=== PATIENT | male | born 1955 | race Caucasian/White ===

== ENCOUNTER 2024-07-21 14:27 | Outpatient (AMB) | payer OTHER, SELFPAY ==
--- NOTE | 2024-07-21 14:31 | A.OFFVIS_ITS ---
Vital Signs 07/21/24 14:33 Height 5 ft 9.49 in Weight 213 lb 10.047 oz BMI 31.1 BP 116/66 Blood Pressure Location Lt brachial Position Sitting Pulse 69 Pulse Source Pulse Oximeter Intake Visit Reasons: arthralgia Intake Note: Patient presents today as a new patient externally referred by PCP for arthralgia. Security And Compliance Project Manager Required: No Accompanied by: Spouse Allergies ENVIROMENTAL Allergy (Intermediate, Uncoded 07/21/24 14:34) HAYFEVER Medication List - Last Reconciled 07/21/24 by Asia Almaguer MD albuterol sulfate 90 mcg/actuation 2 puffs inhalation Q6H PRN amlodipine 10 mg PO DAILY azelastine 1 spray intranasal BID fluticasone propionate 110 mcg/actuation 1 puff inhalation BID hydrochlorothiazide 12.5 mg PO DAILY HPI Comments Details: Patient is a 69-year-old male with hypertension and asthma who presents for evaluation of right wrist pain and swelling. Patient is with his today. They state that in April 2024 they were on holiday in [place] and he had sudden onset of right wrist pain and swelling. This is associated with inability to move the wrist. This got progressively worse over a couple days and so he went to an urgent care. They did a duplex which was negative for DVT and they also checked him for Lyme disease which his antibodies were negative at that time. There was concern for cellulitis and so he was placed on antibiotics and told to follow up with his primary. He says he is slightly improved on antibiotics but he still continued to have pain. He followed with his primary about 4 weeks later and he was given a Medrol Dosepak which completely resolved the pain and swelling. Of note he also reports that he has anosmia and he noted complete resolution of his anosmia with the course of steroids. This happened once prior about a year ago. Again to the same right wrist. However it was not as intense as it was in April. He denies any history of 1st MTP pain and swelling or bilateral knee pain and swelling. He denies any family history of any autoimmune disease. Denies any personal history of psoriasis 07/06/24: normal ESR/CRP. 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 Denies rashes, photosensitivity, alopecia, oral/nasal ulcers, sicca symptoms, lymphadenopathy, chest pain/shortness of breath, foamy urine, lower extremity edema, muscle weakness, Raynaud's Also denies history of seizure, CVA, psychosis, history of kidney problems, history of cytopenias, history of VTE Denies dry eyes and dry mouth Does not smoke Does drink alcohol every day 4 glasses of rum and Coke. 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 Allergic rhinitis Surgical History Hx of wisdom tooth extraction History of surgery Family History Mother Dementia Progressive supranuclear palsy Father High blood pressure High cholesterol Aneurysm Social History Alcohol intake: current Alcohol intake frequency: 3 or more drinks per day Patient Tobacco Use Status: Former Tobacco user Review of Systems Const Details: Review of Systems Constitutional: Denies fever, chills, weight loss ENT: Denies vision changes, eye pain or eye redness, dental caries, dry mouth GI: Denies nausea, vomiting, diarrhea, abdominal pain, change in BM Pulm: Denies SOB, LOPEZ, hemoptysis, wheezing Cards: Denies chest pain, palpitations Skin: Denies Raynaud's, rash, nail changes, photosensitivity, HOSPITALITY COORDINATOR: Denies headaches, weakness, paresthesias, recurrent falls MSK: as per HPI All other systems reviewed and are unremarkable except noted above Physical Exam Vital Signs: BMI result Body Mass Index 31.1 Physical Examination Patient well appearing and in no apparent painful distress Able to rise from chair without support. ?Gait normal. Constitutional Mucous membranes pink and moist patient alert and cooperative HEENT Conjunctiva and sclera clear. ?Pupils equal round and reactive to light. ?No lymphadenopathy. ?Normal dentition. Salivary pool adequate Respiratory System Normal respiratory effort and able to speak in complete sentences. ?Clear to auscultation bilaterally. ?No crackles, rales, rhonchi, wheezes heard. Cardiac System Regular rate and rhythm. ?S1 and S2 heard no murmurs. ?Radial pulses intact bilaterally MSK Hands:.??He notably has large fingers. Unsure if this is swelling because the size was equal bilaterally. There was no tenderness to palpation of the MCPs, PIPs or DIPs. DIPs had scattered Heberden nodes. Able to make a fist Wrists: Right wrist with some fullness which may indicate some synovial thickening when compared to the left wrist however there was full range of motion and no tenderness to palpation. Elbows: Full range of motion without pain. No tenderness, weakness, swelling, increased warmth or erythema. Shoulders: Full range of motion without pain. No tenderness, weakness, swelling, increased warmth or erythema. Knees:.???Normal pain-free range of motion without tenderness, swelling, increased warmth or erythema.? Bilateral knee crepitations Ankles:.??Normal pain-free range of motion without tenderness, swelling, increased warmth or erythema. Feet:.??Normal pain-free range of motion without tenderness, swelling, increased warmth or erythema. Results Reviewed Results Reviewed: brought in results from outside hospital. X-ray report reviewed which showed normal hand and wrist: normal ESR/CRP. UA 3.7, RF <10, Lyme negative Has an appt for EMG to r/o carpal tunnel 05/2024:elevated ESR/CRP, UA normal, RF negative, MAURY positive 1:160 speckled Assessment & Plan Assessment & Plan (1) Calcium pyrophosphate deposition disease (CPPD): Code(s): M11.20 - Other chondrocalcinosis, unspecified site Category: Medical Plan: #Non crystal proven CPPD Patient with a history of monoarticular arthritis involving the wrist that responded to prednisone. This is pretty typical of CPPD. Differentials include rheumatoid arthritis, spondyloarthritis, reactive arthritis, sarcoidosis I am pretty convinced that this was an episode of CPPD especially since he does recall something similar happening to him about a year ago and it completely resolving on its own. Crystal diseases are self-limited and they go through intercritical periods where they do not have any pain or swelling. While I am convinced I will still check blood work to rule out rheumatoid arthritis as this is a, mimicker of CPPD and vice versa He is going for a EMG study to rule out carpal tunnel syndrome. At this time I have low suspicion for carpal tunnel syndrome. I do believe that his median nerve might have been inflamed at the point where he had wrist pain and swelling but I did tell him to proceed with EMG studies. We will also get repeat x-rays of his bilateral hands and wrists looking for chondrocalcinosis. We will also get bilateral knee films. Discussed with patient and that CPPD is a disease of relapsing and remitting agents. Given that he has only had 1 episode within the past year there is no indication to put him on suppression medication. If however he has further attacks within this year he will be placed on colchicine daily. Information given about CPPD and colchicine. We will send rescue Medrol Dosepak to the pharmacy. (2) Positive MAURY (antinuclear antibody): Code(s): R76.8 - Other specified abnormal immunological findings in serum Category: Medical Plan: #Positive MAURY The presence of antinuclear antibodies (MAURY) is mainly associated with connective tissue diseases (CTD). ?However, their presence is found in healthy people especially in women and patients >65. ?In healthy individuals, the frequency of MAURY has been shown to be 31.7% of individuals at 1:40 serum dilution, 13.3% at 1:80, 5.0% at 1:160, and 3.3% at 1:320 (2). Some drugs and xenobiotics are also important for the development of MAURY (hydralazine, hydrochlorothiazide, minocycline, terbinafine, ciprofloxacin, furosemide, omeprazole). Moreover, the deficiency of vitamin D in the body of patients correlates with occurrence of these antibodies (1). At this time there is low suspicion for a connective tissue disease. While it is uncommon to have a positive MAURY in a male over the age of 65 he is on hydrochlorothiazide which has been known to induce MAURY development. He has no signs or symptoms concerning for connective tissue disease at this time ? 1. Sary?lizzette Rodrigues, Niyah Hi, Radha Perez. Antinuclear antibodies in healthy people and non-rheumatic diseases - diagnostic and clinical implications. Reumatologia. 2018;56(4):243-248. doi: 10.5114/reum.2018.52607. Epub 2017May 28. PMID: 45814964; PMCID: [id number]. 2. Muñiz EM, Pradeep TE, Katiuska JS, Daphnie B, Layton R, Shannan MJ, Robert T, Samy JA, Allyson JR, Misty RG, Wei RN, Sonido JS, Milton NF, Braden RJ, Kendall Y, Kehinde A, Harvinder MR, Raphael JA. Range of antinuclear antibodies in healthy individuals. Arthritis Rheum. 1996;40(9):1601-11. doi: 10.1002/art.2997032352. PMID: 4806427. Plan I spent 60 minutes reviewing outside records and labs brought by during the appointment, seeing the patient, discussing the treatment plan with patient and (all questions answered) and documenting in the medical record ? Orders: Orders Erythrocyte Sedimentation Rate Today - Other chondrocalcinosis, unspecified site C Reactive Protein Today - Other chondrocalcinosis, unspecified site MAURY Reflex Titer and Pattern Today - Other chondrocalcinosis, unspecified site Anti DNA DS Antibody Today - Other chondrocalcinosis, unspecified site Complement C3 Today - Other chondrocalcinosis, unspecified site Uric Acid Today - Other chondrocalcinosis, unspecified site UA w Microscopic Today - Other chondrocalcinosis, unspecified site XR hand wrist LT Today . - Other chondrocalcinosis, unspecified site XR knee LT 3V Today .20 - Other chondrocalcinosis, unspecified site XR knee RT 3V Today . - Other chondrocalcinosis, unspecified site Comprehensive Met. Panel Today - Other chondrocalcinosis, unspecified site Complete Blood Count Auto Diff Today - Other chondrocalcinosis, unspecified site Anti Extractable Nuclear Ag Today - Other chondrocalcinosis, unspecified site Complement C4 Today - Other chondrocalcinosis, unspecified site Protein Electrophoresis, Serum Today M11.20 - Other chondrocalcinosis, unspecified site Cyclic Citrullinated Peptide Today M11.20 - Other chondrocalcinosis, unspecified site Rheumatoid Factor Today M11.20 - Other chondrocalcinosis, unspecified site XR hand wrist RT Today M11.20 - Other chondrocalcinosis, unspecified site Coding Level of Care Code New Pt Level 5 (70343) Diagnoses Calcium pyrophosphate deposition disease (CPPD) M11.20 Positive MAURY (antinuclear antibody) R76.8
[2024-07-21 14:33] VITALS: BP 116/66; PULSE 69; BMI 31.1
== END 2024-07-21 15:32 | disposition home or self-care (01) ==
PROVIDERS: PCP Internal Medicine; Visit Provider Student in an Organized Health Care Education/Training Program
DX: M11.20 Other chondrocalcinosis, unspecified site (principal); R76.8 Other specified abnormal immunological findings in serum
CPT/HCPCS: 99205

== ENCOUNTER → 2024-07-21 14:27 | Outpatient (BNVA) | payer OTHER, SELFPAY | PROVIDERS: PCP Internal Medicine; Visit Provider Student in an Organized Health Care Education/Training Program ==

== ENCOUNTER 2024-08-03 15:35 | Outpatient (REF) | payer BC, SELFPAY ==
--- NOTE | ~2024-08-03 | XR_ITS ---
EXAMINATION: XR HAND/WRIST RIGHT CLINICAL INFORMATION: Other chondrocalcinosis, unspecified site M11.20. COMPARISON: None available TECHNIQUE: PA, lateral, navicular, and oblique views of the right hand and wrist. FINDINGS: The bones and soft tissues are normal. No fracture. Alignment is anatomic. Mild degenerative changes at the first MCP joint. No erosions or soft tissue calcifications. XR/XR hand wrist RT IMPRESSION: Mild degenerative changes at the first MCP joint. Electronically signed by: Kofi Nieto MD 09/08/2024 10:25 AM [facility]
--- NOTE | ~2024-08-03 | XR_ITS ---
EXAMINATION: XR KNEE LEFT CLINICAL INFORMATION: Other chondrocalcinosis, unspecified site M11.20. COMPARISON: None available TECHNIQUE: Three views of the left knee. FINDINGS: Moderate tricompartment degenerative changes. Chondrocalcinosis. Small joint effusion. XR/XR knee LT 3V IMPRESSION: 1. Moderate tricompartment degenerative changes and small joint effusion. 2. Chondrocalcinosis. Electronically signed by: Kofi Nieto MD 09/08/2024 10:26 AM [facility]ODS
--- NOTE | ~2024-08-03 | XR_ITS ---
EXAMINATION: XR HAND/WRIST LEFT CLINICAL INFORMATION: Other chondrocalcinosis, unspecified site M11.20. COMPARISON: None available TECHNIQUE: PA, lateral, navicular, and oblique views of the left hand and wrist. FINDINGS: The bones and soft tissues are normal. No fracture. Alignment is anatomic. Joint spaces are maintained. Punctate radiodensity adjacent to the radial styloid. XR/XR hand wrist LT IMPRESSION: Punctate radiodensity adjacent to the radial styloid. Electronically signed by: Kofi Nieto MD 09/08/2024 10:21 AM ANIBAL WOODS
[2024-08-03 16:05] LABS: MANUAL DIFF FLAG NO
[2024-08-03 16:43] LABS: Basophils Absolute Auto 0.1 X10*3/uL (0.0-0.2); Eosinophils Absolute Auto 0.4 X10*3/uL (0.0-0.4); Eosinophils Percent Auto 7.2 % (0-4); Hematocrit 43.2 % (42.0-52.0); Hemoglobin 14.5 g/dl (14.0-18.0); Imm Gran Abs Auto 0.01 X10*3/uL (0.00-0.03); Imm Gran Pct Auto 0.2 % (0.0-0.4); Lymphocytes Absolute Auto 1.3 X10*3/uL (1.2-4.9); Lymphocytes Percent Auto 24.1 % (20-40); Mean Corpuscular HGB Conc 33.6 g/dl (31.0-36.0); Mean Corpuscular Hemoglobin 27.1 pg (27.0-33.0); Mean Corpuscular Volume 80.6 fL (80.0-98.0); Mean Platelet Volume 8.6 fL (9.4-12.4); Monocytes Absolute Auto 0.6 X10*3/uL (0.1-1.2); Neutrophils Percent Auto 56.5 % (45-73); Platelet Count 297 X10*3/uL (160-400); Red Blood Count 5.36 X10*6/uL (4.60-5.80); Red Cell Distribution Width 13.6 % (11.0-16.0); White Blood Count 5.3 X10*3/uL (4.8-10.8)
[2024-08-03 16:54] LABS: Appearance Urine Clear; Color Urine Yellow; Glucose Urine UA Negative (Negative); Leukocyte Esterase Urine Negative (Negative); Nitrite Urine Negative (Negative); Urine Blood Negative (Negative); Urine Ketones Negative (Negative); Urine Protein Negative (Neg-Trace)
[2024-08-03 17:01] LABS: Bacteria Urine None Seen (None Seen); Hyaline Casts Urine 0-2 /LPF (0-2); RBC Urine 0-2 /HPF (0-2); Squamous Epithelial Cell Urine 0-2 /HPF (0-2); WBC Urine 0-5 /HPF (0-5)
[2024-08-03 17:11] LABS: Rheumatoid Factor < 13.0 IU/mL (<15.0)
[2024-08-03 17:18] LABS: Alanine Aminotransferase 22 U/L (0-40); Albumin Level 4.3 g/dL (3.5-5.0); Alkaline Phosphatase 61 U/L (39-117); Anion Gap 14 (12-20); Aspartate Amino Transferase 23 U/L (5-37); Bilirubin Total 0.7 mg/dL (0.0-1.0); Blood Urea Nitrogen 9 mg/dL (9-16); C Reactive Protein 0.49 mg/dL (< or = 0.50); Calcium 9.9 mg/dL (8.4-10.2); Carbon Dioxide 28 mmol/L (22-29); Chloride 97 mmol/L (96-108); Estimated Glomerular Filt Rate > 60; Glucose Random 93 mg/dL (60-115); Potassium 4.4 mmol/L (3.3-5.1); Sodium 135 mmol/L (135-145); Total Protein 7.3 g/dL (6.5-8.0); Uric Acid 3.8 mg/dL (3.4-7.0)
[2024-08-03 19:19] LABS: Erythrocyte Sedimentation Rate 8 MM/HR (0-15)
[2024-08-04 10:48] LABS: Complement C3 132 mg/dL (82-185)
[2024-08-04 14:33] LABS: Anti DNA DS Antibody 1 IU/mL; SM/Ribonucleoprotein Ab <1.0 NEG AI (<1.0 NEG); Smith Protein <1.0 NEG AI (<1.0 NEG)
[2024-08-04 23:17] LABS: Cyclic Citrullinated Peptide <16 UNITS
[2024-08-05 09:43] LABS: Prot Elec - Alpha1 0.4 g/dL (0.2-0.3); Prot Elec - Alpha2 0.7 g/dL (0.5-0.9); Prot Elec - Beta 1 0.5 g/dL (0.4-0.6); Prot Elec - Beta 2 0.5 g/dL (0.2-0.5); Prot Elec - Gamma 0.8 g/dL (0.8-1.7); Prot Elec - Total Protein 6.8 g/dL (6.1-8.1)
[2024-08-09 13:13] LABS: Anti Nuclear Antibody Screen POSITIVE (NEGATIVE)
== END 2024-08-03 15:36 | disposition home or self-care (01) ==
LOC: HO.XRAY 15:35
PROVIDERS: PCP Nurse Practitioner Family; Visit Provider Student in an Organized Health Care Education/Training Program
DX: M11.20 Other chondrocalcinosis, unspecified site (principal)
CPT/HCPCS: 36415; 73110; 73130; 73562; 80053; 81001; 84165; 84550; 85025; 85652; 86038; 86039; 86140; 86160; 86200; 86225; 86235; 86431

== ENCOUNTER 2024-08-24 08:02 | Outpatient (AMB) | payer BC, SELFPAY ==
--- NOTE | 2024-08-24 08:16 | A.OFFVIS_ITS ---
Vital Signs 08/24/24 08:21 Height 5 ft 9.9 in Weight 213 lb BMI 30.6 BP 124/80 Blood Pressure Location Lt brachial Position Sitting Pulse 74 Pulse Source Pulse Oximeter Intake Visit Reasons: follow up med/cm Intake Note: Patient presents today for a follow-up on med Wire Bender Hand Required: No Accompanied by: Self / Same As Patient Allergies ENVIROMENTAL Allergy (Intermediate, Uncoded 08/24/24 08:17) HAYFEVER HPI Comments Details: Patient is a 69-year-old male with hypertension and asthma who presents for follow-up Interval History: Last seen 06/2024 where he establish care for the evaluation of right wrist pain and swelling. Newly diagnosed with CPPD. Also complained of bilateral knee pain for which x-rays were done. X-rays showed bilateral knee OA left knee worse than right knee. Today patient denies any further swelling of his wrists. Here today looking for options for his bilateral knee osteoarthritis Rheumatologic History: Initially presented 06/2024 with sudden onset right wrist pain and swelling. Associated with inability to move the wrists. He was given a Medrol Dosepak with improvement in his pain over the course of a week. This was the 2nd occurrence it had happened a year prior to his 2023 presentation. No other autoimmune or connective tissue related review of systems. Presentation was consistent with CPPD and x-rays of the knees and wrists showed chondrocalcinosis as well No colchicine was offered at that time because this was not occurring that frequently. Also following up for bilateral osteoarthritis of his knees. 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 Allergic rhinitis Surgical History Hx of wisdom tooth extraction History of surgery Family History Mother Dementia Progressive supranuclear palsy Father High blood pressure High cholesterol Aneurysm Social History Alcohol intake: current Alcohol intake frequency: 3 or more drinks per day Patient Tobacco Use Status: Former Tobacco user Review of Systems Const Details: Review of Systems Constitutional: Denies fever, chills, weight loss ENT: Denies vision changes, eye pain or eye redness, dental caries, dry mouth GI: Denies nausea, vomiting, diarrhea, abdominal pain, change in BM Pulm: Denies SOB, LOPEZ, hemoptysis, wheezing Cards: Denies chest pain, palpitations Skin: Denies Raynaud's, rash, nail changes, photosensitivity, CREDIT CARD CONTROL CLERK: Denies headaches, weakness, paresthesias, recurrent falls MSK: as per HPI All other systems reviewed and are unremarkable except noted above Physical Exam Vital Signs: Last Vital Signs Pulse 74 08/24/24 08:21 BP 124/80 08/24/24 08:21 BMI result Body Mass Index 30.6 Physical Examination Patient well appearing and in no apparent painful distress Able to rise from chair without support. ?Gait normal. Constitutional Mucous membranes pink and moist patient alert and cooperative HEENT Conjunctiva and sclera clear. ?Pupils equal round and reactive to light. ?No lymphadenopathy. ?Normal dentition. Salivary pool adequate Respiratory System Normal respiratory effort and able to speak in complete sentences. ?Clear to auscultation bilaterally. ?No crackles, rales, rhonchi, wheezes heard. Cardiac System Regular rate and rhythm. ?S1 and S2 heard no murmurs. ?Radial pulses intact bilaterally MSK Hands:.??He notably has large fingers. Unsure if this is swelling because the size was equal bilaterally. There was no tenderness to palpation of the MCPs, PIPs or DIPs. DIPs had scattered Heberden nodes. Able to make a fist Wrists: Right wrist with some fullness which may indicate some synovial thickening when compared to the left wrist however there was full range of motion and no tenderness to palpation. Elbows: Full range of motion without pain. No tenderness, weakness, swelling, increased warmth or erythema. Shoulders: Full range of motion without pain. No tenderness, weakness, swelling, increased warmth or erythema. Knees:.???Normal pain-free range of motion without tenderness, swelling, increased warmth or erythema.? Bilateral knee crepitations Ankles:.??Normal pain-free range of motion without tenderness, swelling, increased warmth or erythema. Feet:.??Normal pain-free range of motion without tenderness, swelling, increased warmth or erythema. Results Reviewed Results Reviewed: Laboratory Tests 08/03/24 16:01 WBC 5.3 RBC 5.36 Hgb 14.5 Hct 43.2 Plt Count 297 ESR 8 Sodium 135 Potassium 4.4 Chloride 97 Carbon Dioxide 28 BUN 9 Creatinine 0.76 Uric Acid 3.8 AST 23 ALT 22 C-Reactive Protein 0.49 Rheumatoid Factor < 13.0 Cycl Citrul Peptide IgG <16 MAURY Screen POSITIVE A MAURY Titer 1:80 H Sm (Hazel) Antibody <1.0 NEG SM/APARTMENT LOCATOR IgG Antibody <1.0 NEG Double Strand DNA Ab 1 Complement C3 132 Complement C4 21 XR Bilateral Knee 07/2024 (my read) Left knee with Kellgren grade 2-3. It evidence of chondrocalcinosis Right knee with Kellgren grade 2. XR bilateral hands and wrists 07/2024 (my read) No evidence of inflammatory arthritis such as periarticular osteopenia or erosions. Normal carpal space no evidence of carpal crowding. Faint chondrocalcinosis of the TFCC of the left hand. Assessment & Plan Assessment & Plan (1) Calcium pyrophosphate deposition disease (CPPD): Code(s): M11.20 - Other chondrocalcinosis, unspecified site Category: Medical Plan: #Non crystal proven CPPD Patient with a history of monoarticular arthritis involving the wrist that responded to prednisone. This is pretty typical of CPPD. Differentials include rheumatoid arthritis, spondyloarthritis, reactive arthritis, sarcoidosis Knee and wrist x-rays confirm evidence of chondrocalcinosis. RF and CCP negative. ESR and CRP are normal now. His wrist pain was likely due to CPPD No colchicine or further therapies at this time. If recurrent we will consider colchicine therapy (2) Bilateral primary osteoarthritis of knee: Code(s): M17.0 - Bilateral primary osteoarthritis of knee Category: Medical Plan: #Bilateral Knee OA Bilateral knee OA left worse than right. Patient interested in Euflexxa injections We will order same and he will get this 09/2024 (3) Positive MAURY (antinuclear antibody): Code(s): R76.8 - Other specified abnormal immunological findings in serum Category: Medical Plan: #Positive MAURY The presence of antinuclear antibodies (MAURY) is mainly associated with connective tissue diseases (CTD). ?However, their presence is found in healthy people especially in women and patients >65. ?In healthy individuals, the frequency of MAURY has been shown to be 31.7% of individuals at 1:40 serum dilution, 13.3% at 1:80, 5.0% at 1:160, and 3.3% at 1:320 (2). Some drugs and xenobiotics are also important for the development of MAURY (hydralazine, hydrochlorothiazide, minocycline, terbinafine, ciprofloxacin, furosemide, omeprazole). Moreover, the deficiency of vitamin D in the body of patients correlates with occurrence of these antibodies (1). At this time there is low suspicion for a connective tissue disease. While it is uncommon to have a positive MAURY in a male over the age of 65 he is on hydrochlorothiazide which has been known to induce MAURY development. He has no signs or symptoms concerning for connective tissue disease at this time ? 1. Sary?lizzette Rodrigues, Niyah Hi, Radha Perez. Antinuclear antibodies in healthy people and non-rheumatic diseases - diagnostic and clinical implications. Reumatologia. 2018;56(4):243-248. doi: 10.5114/reum.2018.25398. Epub 2017May 28. PMID: 90911106; PMCID: [id number]. 2. Muñiz EM, Pradeep TE, Katiuska JS, Daphnie B, Layton R, Shannan MJ, Robert T, Samy JA, Allyson JR, Misty RG, Wei RN, Sonido JS, Milton NF, Braden RJ, Kendall Y, Kehinde A, Harvinder MR, Raphael BEVERLY. Range of antinuclear antibodies in healthy individuals. Arthritis Rheum. 1996;40(9):1601-11. doi: 10.1002/art.1084879236. PMID: 4061367. Plan I spent 20 minutes reviewing the record and labs, seeing the patient, discussing the treatment plan and documenting in the medical record ? Coding Level of Care Code Est Pt Level 3 (13802) Diagnoses Calcium pyrophosphate deposition disease (CPPD) M11.20 Bilateral primary osteoarthritis of knee M17.0 Positive MAURY (antinuclear antibody) R76.8
[2024-08-24 08:21] VITALS: BP 124/80; PULSE 74; BMI 30.6
== END 2024-08-24 08:49 | disposition home or self-care (01) ==
PROVIDERS: PCP Nurse Practitioner Family; Visit Provider Student in an Organized Health Care Education/Training Program
DX: M11.20 Other chondrocalcinosis, unspecified site (principal); M17.0 Bilateral primary osteoarthritis of knee; R76.8 Other specified abnormal immunological findings in serum
CPT/HCPCS: 99213

== ENCOUNTER 2024-10-18 11:18 | Outpatient (REF) | payer BC, SELFPAY ==
[2024-10-18 14:27] LABS: MN% 84.7 %; PMN% 15.3 %
[2024-10-18 14:28] LABS: RBC Synovial Fluid < 0.002 X10*6/uL
[2024-10-18 15:25] LABS: Lymphocytes Synovial Fluid 86 %; Neutrophils Synovial Fluid 10 %; Other Cells Synovial Fluid 4
[2024-10-18 15:26] LABS: BF Shift QC OK YES
== END 2024-10-18 11:19 | disposition home or self-care (01) ==
LOC: HO.LAB 11:18
PROVIDERS: PCP Nurse Practitioner Family; Visit Provider Student in an Organized Health Care Education/Training Program
DX: M11.20 Other chondrocalcinosis, unspecified site (principal); M17.0 Bilateral primary osteoarthritis of knee; R76.8 Other specified abnormal immunological findings in serum
CPT/HCPCS: 20610; 87070; 87073; 87205; 89051; 89060; J7323

== ENCOUNTER 2024-10-18 11:18 | Outpatient (AMB) | payer BC, SELFPAY ==
--- NOTE | 2024-10-18 11:19 | A.OFFVIS_ITS ---
Vital Signs 10/18/24 11:28 Height 5 ft 9.9 in Weight 218 lb 7.649 oz BMI 31.4 BP 144/100 H Blood Pressure Location Lt brachial Position Sitting Respiration 18 Pulse 65 Pulse Oximetry (%) 98 Oxygen Delivery Method Room Air Intake Visit Reasons: knee pain/inj Intake Note: Patient presents for knee pain/injection. Allergies ENVIROMENTAL Allergy (Intermediate, Uncoded 08/24/24 08:17) HAYFEVER Medication List - Last Reconciled 10/18/24 by Asia Almaguer MD albuterol sulfate 90 mcg/actuation 2 puffs inhalation Q6H PRN amlodipine 10 mg PO DAILY azelastine 1 spray intranasal BID fluticasone propionate 110 mcg/actuation 1 puff inhalation BID hydrochlorothiazide 12.5 mg PO DAILY HPI Comments Details: Patient is a 69-year-old male with hypertension and asthma who presents for follow-up Interval History: Last seen 07/2024. At that time he did not report any further monoarticular arthritis symptoms involving his wrists. He was interested in therapeutic options for his bilateral knee osteoarthritis. He is here today for his 1st injection of Euflexxa. Today he reports no further exacerbations of his CPPD Rheumatologic History: Initially presented 06/2024 with sudden onset right wrist pain and swelling. Associated with inability to move the wrists. He was given a Medrol Dosepak with improvement in his pain over the course of a week. This was the 2nd occurrence it had happened a year prior to his 2023 presentation. No other autoimmune or connective tissue related review of systems. Presentation was consistent with CPPD and x-rays of the knees and wrists showed chondrocalcinosis as well No colchicine was offered at that time because this was not occurring that frequently. Also following up for bilateral osteoarthritis of his knees. 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 Allergic rhinitis Surgical History Hx of wisdom tooth extraction History of surgery Family History Mother Dementia Progressive supranuclear palsy Father High blood pressure High cholesterol Aneurysm Social History Alcohol intake: current Alcohol intake frequency: 3 or more drinks per day Patient Tobacco Use Status: Former Tobacco user Review of Systems Const Details: Review of Systems Constitutional: Denies fever, chills, weight loss ENT: Denies vision changes, eye pain or eye redness, dental caries, dry mouth GI: Denies nausea, vomiting, diarrhea, abdominal pain, change in BM Pulm: Denies SOB, LOPEZ, hemoptysis, wheezing Cards: Denies chest pain, palpitations Skin: Denies Raynaud's, rash, nail changes, photosensitivity, WRAPPER OPENER: Denies headaches, weakness, paresthesias, recurrent falls MSK: as per HPI All other systems reviewed and are unremarkable except noted above Physical Exam Physical Examination Patient well appearing and in no apparent painful distress Able to rise from chair without support. ?Gait normal. Constitutional Mucous membranes pink and moist patient alert and cooperative HEENT Conjunctiva and sclera clear. ?Pupils equal round and reactive to light. ?No lymphadenopathy. ?Normal dentition. Salivary pool adequate Respiratory System Normal respiratory effort and able to speak in complete sentences. ?Clear to auscultation bilaterally. ?No crackles, rales, rhonchi, wheezes heard. Cardiac System Regular rate and rhythm. ?S1 and S2 heard no murmurs. ?Radial pulses intact bilaterally MSK Hands:.??He notably has large fingers. Unsure if this is swelling because the size was equal bilaterally. There was no tenderness to palpation of the MCPs, PIPs or DIPs. DIPs had scattered [place]berden nodes. Able to make a fist Wrists: Right wrist with some fullness which may indicate some synovial thickening when compared to the left wrist however there was full range of motion and no tenderness to palpation. Elbows: Full range of motion without pain. No tenderness, weakness, swelling, increased warmth or erythema. Shoulders: Full range of motion without pain. No tenderness, weakness, swelling, increased warmth or erythema. Knees:.???Normal pain-free range of motion without tenderness, swelling, increased warmth or erythema.? Bilateral knee crepitations Ankles:.??Normal pain-free range of motion without tenderness, swelling, increased warmth or erythema. Feet:.??Normal pain-free range of motion without tenderness, swelling, increased warmth or erythema. Office Procedures AMB Joint Injection/Aspiration Joint Injection/Aspiration Details: Procedure was explained to the patient and consent was obtained. ? The area of interest was identified and confirmed with patient. ?This was subsequently cleaned with chlorhexidine x3. ? The area was then anesthetized using ethyl chloride spray. 15 cc straw-colored fluid removed from left knee and 2 cc of Euflexxa subsequently injected without issue. ?Minimal to no bleeding. ?Patient tolerated procedure. Primary Site: left knee Prep: site was prepped using aseptic technique and ethochloride spray was applied Injected: other Approach Used: medial parapatellar Procedure: The patient tolerated the procedure well Coding 24015 - Large joint Procedure code (CPT) selection complete AMB Joint Injection/Aspiration Joint Injection/Aspiration Details: Procedure was explained to the patient and consent was obtained. ? The area of interest was identified and confirmed with patient. ?This was subsequently cleaned with chlorhexidine x3. ? The area was then anesthetized using ethyl chloride spray. 2 cc of Euflexxa was injected to the right knee without issue. ?Minimal to no bleeding. ?Patient tolerated procedure. Primary Site: right knee Prep: site was prepped using aseptic technique and ethochloride spray was applied Injected: other Approach Used: medial parapatellar Procedure: The patient tolerated the procedure well Coding 08864 - Large joint Procedure code (CPT) selection complete Office Meds Euflexxa 10 mg/mL (mw 2.4-3.6 million) intra-articular syringe Performing Provider: Asia Almaguer MD Performing Location: [facility] [place] Administered by: Asia Almaguer MD on 10/18/24 13:43 Dose Route Admin Location Dispensed Lot Number Expiration Date [facility] [employer] 20 mg intra-articular left knee 2 mL [id number] 08/27/25 [address]-5 [employer] Euflexxa 10 mg/mL (mw 2.4-3.6 million) intra-articular syringe Performing Provider: Asia Almaguer MD Performing Location: [facility] [place]ology Administered by: Asia Almaguer MD on 10/18/24 13:43 Dose Route Admin Location Dispensed Lot Number Expiration Date [facility] [employer] 20 mg intra-articular right knee 2 mL [id number] 08/27/25 [address]-8 [facility] Results Reviewed Results Reviewed: Laboratory Tests 08/03/24 16:01 WBC 5.3 RBC 5.36 Hgb 14.5 Hct 43.2 Plt Count 297 ESR 8 Sodium 135 Potassium 4.4 Chloride 97 Carbon Dioxide 28 BUN 9 Creatinine 0.76 Uric Acid 3.8 AST 23 ALT 22 C-Reactive Protein 0.49 Rheumatoid Factor < 13.0 Cycl Citrul Peptide IgG <16 MAURY Screen POSITIVE A MAURY Titer 1:80 H Sm (Hazel) Antibody <1.0 NEG SM/PROVIDER RELATIONS REP IgG Antibody <1.0 NEG Double Strand DNA Ab 1 Complement C3 132 Complement C4 21 XR Bilateral Knee 07/2024 (my read) Left knee with Kellgren grade 2-3. It evidence of chondrocalcinosis Right knee with Kellgren grade 2. XR bilateral hands and wrists 07/2024 (my read) No evidence of inflammatory arthritis such as periarticular osteopenia or erosions. Normal carpal space no evidence of carpal crowding. Faint chondrocalcinosis of the TFCC of the left hand. Assessment & Plan Assessment & Plan (1) Calcium pyrophosphate deposition disease (CPPD): Code(s): M11.20 - Other chondrocalcinosis, unspecified site Category: Medical Plan: #Non crystal proven CPPD Patient with a history of monoarticular arthritis involving the wrist that responded to prednisone. Differentials include rheumatoid arthritis, spondyloarthritis, reactive arthritis, sarcoidosis Knee and wrist x-rays confirm evidence of chondrocalcinosis. RF and CCP negative. ESR and CRP are normal now. His wrist pain was likely due to CPPD Plan - No colchicine or further therapies at this time. - If recurrent we will consider colchicine therapy (2) Bilateral primary osteoarthritis of knee: Code(s): M17.0 - Bilateral primary osteoarthritis of knee Category: Medical Plan: #Bilateral Knee OA Bilateral knee OA left worse than right. Arthrocentesis removing 15 cc straw-colored fluid from the left knee. Fluid sent for analysis. Bilateral Euflexxa injections given 1st dose Plan - send fluid for cells, crystals and microbiology - 2nd dose of Euflexxa in 1 week (3) Positive MAURY (antinuclear antibody): Code(s): R76.8 - Other specified abnormal immunological findings in serum Category: Medical Plan: #Positive MAURY The presence of antinuclear antibodies (MAURY) is mainly associated with connective tissue diseases (CTD). ?However, their presence is found in healthy people especially in women and patients >65. ?In healthy individuals, the frequency of MAURY has been shown to be 31.7% of individuals at 1:40 serum dilution, 13.3% at 1:80, 5.0% at 1:160, and 3.3% at 1:320 (2). Some drugs and xenobiotics are also important for the development of MAURY (hydralazine, hydrochlorothiazide, minocycline, terbinafine, ciprofloxacin, furosemide, omeprazole). Moreover, the deficiency of vitamin D in the body of patients correlates with occurrence of these antibodies (1). At this time there is low suspicion for a connective tissue disease. While it is uncommon to have a positive MAURY in a male over the age of 65 he is on hydrochlorothiazide which has been known to induce MAURY development. He has no signs or symptoms concerning for connective tissue disease at this time ? 1. Sary?lizzette Rodrigues, Niyah Hi, Radha Perez. Antinuclear antibodies in healthy people and non-rheumatic diseases - diagnostic and clinical implications. Reumatologia. 2018;56(4):243-248. doi: 10.5114/reum.2018.21171. Epub 2017May 28. PMID: 39511879; PMCID: SWX1245191. 2. Muñiz EM, Pradeep TE, Katiuska JS, Daphnie B, Layton R, Shannan MJ, Robert T, Samy JA, Allyson JR, Misty RG, Wei RN, Sonido JS, Milton NF, Braden RJ, Kendall Y, Kehinde Hathaway, Harvinder DILLARD, Raphael BEVERLY. Range of antinuclear antibodies in healthy individuals. Arthritis Rheum. 1996;40(9):1601-11. doi: 10.1002/art.7295090073. PMID: 8824707. Plan I spent 20 minutes reviewing the record and labs, seeing the patient, discussing the treatment plan and documenting in the medical record ? Orders: Orders Cell Ct wDiff Synovial Fl Today M17.12 - Unilateral primary osteoarthritis, left knee AMB Joint Injection/Aspiration Today M17.0 - Bilateral primary osteoarthritis of knee AMB Joint Injection/Aspiration Today M17.0 - Bilateral primary osteoarthritis of knee Synov Fld Cult + Crystals Today M17.12 - Unilateral primary osteoarthritis, left knee Coding Level of Care Code Est Pt Level 3 (28899) Complex EM visit Add On G2211 Diagnoses Calcium pyrophosphate deposition disease (CPPD) M11.20 Bilateral primary osteoarthritis of knee M17.0 Positive MAURY (antinuclear antibody) R76.8 CPT Codes Coding - 45566 Large joint: 76991 - Large joint ([id number]) Coding - 49039 Large joint: 13905 - Large joint ([id number])
[2024-10-18 11:28] VITALS: BP 144/100; PULSE 65; RESP 18; O2SAT 98; BMI 31.4
== END 2024-10-18 12:05 | disposition home or self-care (01) ==
PROVIDERS: PCP Nurse Practitioner Family; Visit Provider Student in an Organized Health Care Education/Training Program
DX: M17.0 Bilateral primary osteoarthritis of knee (principal); M11.20 Other chondrocalcinosis, unspecified site; R76.8 Other specified abnormal immunological findings in serum
CPT/HCPCS: 20610; 99213

== ENCOUNTER 2024-10-25 08:21 | Outpatient (AMB) | payer BC, SELFPAY ==
[2024-10-25 08:23] VITALS: BP 138/72; PULSE 79; BMI 31.6
--- NOTE | 2024-10-25 08:23 | A.OFFVIS_ITS ---
Vital Signs 10/25/24 08:23 Height 5 ft 9.9 in Weight 219 lb 5.759 oz BMI 31.6 BP 138/72 Blood Pressure Location Lt brachial Position Sitting Pulse 79 Pulse Source Pulse Oximeter Intake Visit Reasons: knee pain/inj Intake Note: Patient last see by Doctor Asia Almaguer 07/21/24. Presents today for knee pain and injection follow up and test results. Risk Control Specialist Required: No Accompanied by: Spouse Allergies ENVIROMENTAL Allergy (Intermediate, Uncoded 10/25/24 08:28) HAYFEVER Medication List - Last Reconciled 10/25/24 by Asia Almaguer MD albuterol sulfate 90 mcg/actuation 2 puffs inhalation Q6H PRN amlodipine 10 mg PO DAILY azelastine 1 spray intranasal BID fluticasone propionate 110 mcg/actuation 1 puff inhalation BID hydrochlorothiazide 12.5 mg PO DAILY HPI Comments Details: Patient is a 69-year-old male with hypertension and asthma who presents for follow-up Interval History: Last seen 07/2024. At that time he did not report any further monoarticular arthritis symptoms involving his wrists. He was interested in therapeutic options for his bilateral knee osteoarthritis. He is here today for his 2nd injection of Euflexxa. Today he reports no further exacerbations of his CPPD Had 15 cc of straw-colored fluid removed 1 week ago prior to his Euflexxa injection. Fluid results were noninflammatory and consistent with osteoarthritis. Negative cultures no crystals seen. Rheumatologic History: Initially presented 06/2024 with sudden onset right wrist pain and swelling. Associated with inability to move the wrists. He was given a Medrol Dosepak with improvement in his pain over the course of a week. This was the 2nd occurrence it had happened a year prior to his 2023 presentation. No other autoimmune or connective tissue related review of systems. Presentation was consistent with CPPD and x-rays of the knees and wrists showed chondrocalcinosis as well No colchicine was offered at that time because this was not occurring that frequently. Also following up for bilateral osteoarthritis of his knees. 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 Allergic rhinitis Surgical History Hx of wisdom tooth extraction History of surgery Family History Mother Dementia Progressive supranuclear palsy Father High blood pressure High cholesterol Aneurysm Social History Alcohol intake: current Alcohol intake frequency: 3 or more drinks per day Patient Tobacco Use Status: Former Tobacco user Review of Systems Const Details: Review of Systems Constitutional: Denies fever, chills, weight loss ENT: Denies vision changes, eye pain or eye redness, dental caries, dry mouth GI: Denies nausea, vomiting, diarrhea, abdominal pain, change in BM Pulm: Denies SOB, LOPEZ, hemoptysis, wheezing Cards: Denies chest pain, palpitations Skin: Denies Raynaud's, rash, nail changes, photosensitivity, ROUTE DELIVERY SUPERVISOR: Denies headaches, weakness, paresthesias, recurrent falls MSK: as per HPI All other systems reviewed and are unremarkable except noted above Physical Exam Vital Signs: Last Vital Signs Pulse 79 10/25/24 08:23 BP 138/72 10/25/24 08:23 BMI result Body Mass Index 31.6 Physical Examination Patient well appearing and in no apparent painful distress Able to rise from chair without support. ?Gait normal. Constitutional Mucous membranes pink and moist patient alert and cooperative HEENT Conjunctiva and sclera clear. ?Pupils equal round and reactive to light. ?No lymphadenopathy. ?Normal dentition. Salivary pool adequate Respiratory System Normal respiratory effort and able to speak in complete sentences. ?Clear to auscultation bilaterally. ?No crackles, rales, rhonchi, wheezes heard. Cardiac System Regular rate and rhythm. ?S1 and S2 heard no murmurs. ?Radial pulses intact bilaterally MSK Hands:.??He notably has large fingers. Unsure if this is swelling because the size was equal bilaterally. There was no tenderness to palpation of the MCPs, PIPs or DIPs. DIPs had scattered Heberden nodes. Able to make a fist Wrists: Right wrist with some fullness which may indicate some synovial thickening when compared to the left wrist however there was full range of motion and no tenderness to palpation. Elbows: Full range of motion without pain. No tenderness, weakness, swelling, increased warmth or erythema. Shoulders: Full range of motion without pain. No tenderness, weakness, swelling, increased warmth or erythema. Knees:.???Normal pain-free range of motion without tenderness, swelling, increased warmth or erythema.? Bilateral knee crepitations Ankles:.??Normal pain-free range of motion without tenderness, swelling, increased warmth or erythema. Feet:.??Normal pain-free range of motion without tenderness, swelling, increased warmth or erythema. Office Procedures AMB Joint Injection/Aspiration Joint Injection/Aspiration Details: Procedure was explained to the patient and consent was obtained. ? The area of interest was identified and confirmed with patient. ?This was subsequently cleaned with chlorhexidine x3. ? The area was then anesthetized using ethyl chloride spray. 2 cc Euflexxa administered to left knee. ?Minimal to no bleeding. ?Patient tolerated procedure. Primary Site: left knee Prep: site was prepped using aseptic technique and ethochloride spray was applied Injected: other Approach Used: anterior Procedure: The patient tolerated the procedure well Coding 86428 - Large joint Procedure code (CPT) selection complete AMB Joint Injection/Aspiration Joint Injection/Aspiration Details: Procedure was explained to the patient and consent was obtained. ? The area of interest was identified and confirmed with patient. ?This was subsequently cleaned with chlorhexidine x3. ? The area was then anesthetized using ethyl chloride spray. 2 cc Euflexxa administer 2 right knee. ?Minimal to no bleeding. ?Patient tolerated procedure. Primary Site: right knee Prep: site was prepped using aseptic technique and ethochloride spray was applied Injected: other Approach Used: anterior Procedure: The patient tolerated the procedure well Coding 28387 - Large joint Procedure code (CPT) selection complete Office Meds Euflexxa 10 mg/mL (mw 2.4-3.6 million) intra-articular syringe Performing Provider: Asia Almaguer MD Performing Location: [facility] Rheumatology Administered by: Asia Almaguer MD on 10/25/24 08:57 Dose Route Admin Location Dispensed Lot Number Expiration Date [employer] Re[employer] 20 mg intra-articular left knee 2 mL [id number] 08/27/25 [address]-0 [facility] Euflexxa 10 mg/mL (mw 2.4-3.6 million) intra-articular syringe Performing Provider: Asia Almaguer MD Performing Location: [facility] Rheumatology Administered by: Asia Almaguer MD on 10/25/24 08:57 Dose Route Admin Location Dispensed Lot Number Expiration Date [facility] Ware[facility] Receiver 20 mg intra-articular right knee 2 mL [id number] 08/27/25 [address]-8 [facility] Results Reviewed Results Reviewed: Laboratory Tests 08/03/24 16:01 WBC 5.3 RBC 5.36 Hgb 14.5 Hct 43.2 Plt Count 297 ESR 8 Sodium 135 Potassium 4.4 Chloride 97 Carbon Dioxide 28 BUN 9 Creatinine 0.76 Uric Acid 3.8 AST 23 ALT 22 C-Reactive Protein 0.49 Rheumatoid Factor < 13.0 Cycl Citrul Peptide IgG <16 MAURY Screen POSITIVE A MAURY Titer 1:80 H Sm (Hazel) Antibody <1.0 NEG SM/VINYL INSTALLER IgG Antibody <1.0 NEG Double Strand DNA Ab 1 Complement C3 132 Complement C4 21 XR Bilateral Knee 07/2024 (my read) Left knee with Kellgren grade 2-3. It evidence of chondrocalcinosis Right knee with Kellgren grade 2. XR bilateral hands and wrists 07/2024 (my read) No evidence of inflammatory arthritis such as periarticular osteopenia or erosions. Normal carpal space no evidence of carpal crowding. Faint chondrocalcinosis of the TFCC of the left hand. Knee Aspirate 10/18/24 Laboratory Tests 10/18/24 11:18 Synovial WBC 0.300 Synovial RBC < 0.002 Synovial Neutrophils 10 Synovial Lymphocytes 86 Synovial Other Cells 4 Procedure/Result Gram Stain - Final Anaerobic Culture - Final ???NO GROWTH AFTER 5 DAYS Gross Specimen Examination - Final Fluid Crystals - No crystals seen Joint Fluid Culture - Final ???No growth after 2 days Assessment & Plan Assessment & Plan (1) Bilateral primary osteoarthritis of knee: Code(s): M17.0 - Bilateral primary osteoarthritis of knee Category: Medical Plan: #Bilateral Knee OA Bilateral knee OA left worse than right. Non inflammatory knee aspirate 2nd Euflexxa dose given Plan - 3rd dose of Euflexxa in 1 week (2) Positive MAURY (antinuclear antibody): Code(s): R76.8 - Other specified abnormal immunological findings in serum Category: Medical Plan: #Positive MAURY The presence of antinuclear antibodies (MAURY) is mainly associated with connective tissue diseases (CTD). ?However, their presence is found in healthy people especially in women and patients >65. ?In healthy individuals, the frequency of MAURY has been shown to be 31.7% of individuals at 1:40 serum dilution, 13.3% at 1:80, 5.0% at 1:160, and 3.3% at 1:320 (2). Some drugs and xenobiotics are also important for the development of MAURY (hydralazine, hydrochlorothiazide, minocycline, terbinafine, ciprofloxacin, furosemide, omeprazole). Moreover, the deficiency of vitamin D in the body of patients correlates with occurrence of these antibodies (1). At this time there is low suspicion for a connective tissue disease. While it is uncommon to have a positive MAURY in a male over the age of 65 he is on hydrochlorothiazide which has been known to induce MAURY development. He has no signs or symptoms concerning for connective tissue disease at this time ? 1. Sary?lizzette Rodrigues, Niyah Hi, Radha Perez. Antinuclear antibodies in healthy people and non-rheumatic diseases - diagnostic and clinical implications. Reumatologia. 2018;56(4):243-248. doi: 10.5114/reum.2018.15517. Epub 2017May 28. PMID: 24401576; PMCID: [id number]. 2. Antonino EM, Pradeep TE, Katiuska JS, Daphnie B, Layton R, Shannan MJ, Robert T, Samy JA, Allyson JR, Misty RG, Wei RN, Sonido JS, Milton NF, Braden RJ, Kendall Y, Kehinde A, Harvinder MR, Raphael BEVERLY. Range of antinuclear antibodies in healthy individuals. Arthritis Rheum. 1996;40(9):1601-11. doi: 10.1002/art.4579579716. PMID: 2848111. (3) Calcium pyrophosphate deposition disease (CPPD): Code(s): M11.20 - Other chondrocalcinosis, unspecified site Category: Medical Plan: #Non crystal proven CPPD Patient with a history of monoarticular arthritis involving the wrist that responded to prednisone. Differentials include rheumatoid arthritis, spondyloarthritis, reactive arthritis, sarcoidosis Knee and wrist x-rays confirm evidence of chondrocalcinosis. RF and CCP negative. ESR and CRP are normal now. His wrist pain was likely due to CPPD Plan - No colchicine or further therapies at this time. - If recurrent we will consider colchicine therapy Plan I spent 20 minutes reviewing the record and labs, seeing the patient, discussing the treatment plan and documenting in the medical record ? Orders: Orders AMB Joint Injection/Aspiration Today M17.0 - Bilateral primary osteoarthritis of knee AMB Joint Injection/Aspiration Today M17.0 - Bilateral primary osteoarthritis of knee Medications: New Euflexxa (sodium hyaluronate (viscosup)) 20 mg (2 mL) intra-articular ONCE 2 mL 0RF NS M17.0 - Bilateral primary osteoarthritis of knee Euflexxa (sodium hyaluronate (viscosup)) 20 mg (2 mL) intra-articular ONCE 2 mL 0RF NS M17.0 - Bilateral primary osteoarthritis of knee Coding Level of Care Code Est Pt Level 3 (19325) Diagnoses Bilateral primary osteoarthritis of knee M17.0 Positive MAURY (antinuclear antibody) R76.8 Calcium pyrophosphate deposition disease (CPPD) M11.20 CPT Codes Coding - 64955 Large joint: 23042 - Large joint ([id number]) Coding - 20719 Large joint: 53519 - Large joint ([id number])
--- OUTSIDE RECORDS SUMMARY | 2024-10-25 08:42 | XMS_ITS ---
Author Organization [facility] enter Primary Care Address [address] [place] [address] Care Team Providers Care Sausage Canner Name Role Phone Migration, Provider Unavailable Unavailable REASON FOR VISIT [facility] Medications Medication SIG (Take, Route, Frequency, Duration) Notes Start Date End Date Status Qvar RediHaler 80 MCG/ACT Inhalation 05/18/2024 Active Arnuity Ellipta 200 MCG/ACT Inhalation 05/18/2024 Active AZELASTINE 137 MCG (0.1 %) NASAL SPRAY *Reorder from [employer] for eRx and Interaction Alerts* 05/18/2024 Active ALBUTEROL 90 MCG-BUDESONIDE 80 MCG/ACTUATION HFA AEROSOL INHALER *Reorder from [employer] for eRx and Interaction Alerts* 05/18/2024 Active LOSARTAN *[facility] and Interaction [facility]* 05/18/2024 Active Fluticasone-Salmeterol 100-50 MCG/ACT Inhalation 05/18/2024 Active Meloxicam 7.5 MG Oral 05/18/2024 Ac tive Losartan Potassium-HCTZ 50-12.5 MG Oral 05/18/2024 Active Albuterol Sulfate HFA 108 (90 Base) MCG/ACT Inhalation 05/18/2024 Active methylPREDNISolone 4 MG Oral 05/18/2024 Active Azelastine HCl 137 MCG/SPRAY Nasal 05/18/2024 Active Clobetasol Propionate 0.05 % External 05/18/2024 Active Cephalexin 500 MG Oral 05/18/2024 A ctive Doxycycline Hyclate 100 MG Oral 05/18/2024 Active Fluticasone Propionate HFA 110 MCG/ACT Inhalation 05/18/2024 Active amLODIPine-Atorvastatin 10-10 MG Oral 05/18/2024 Active Encounters Encounter Location Date Provider Diagnosis [facility] Primary Care [address] [place] [address] 10/16/2024 Provider Migration Plan Of Treatment No Information Progress Notes * YAO SILVADOB: [birth year] (69 yo M)Acc No.[id number]:10/16/2024 Patient:?YAO SILVA :1955???Age:69 Y???Sex:Male Address:[address] [place] [address], [address] Subjective: * Chief Complaints: * ???EMR-Alberto * Medical History:? * Surgical History:? * Hospitalization/Major Diagno stic Procedure:? * Medications:?TakingamLODIPin e-Atorvastatin 10-10 MG Tablet Oral Azelastine HCl 137 [...] INHALER , Notes to Pharmacist: *[facility] for [facility]Rx and Interaction Alerts*AZELASTINE 137 MCG (0.1 %) NASAL SPRAY , Notes to Pharmacist: *[facility] and Interaction Alerts*LOSARTAN , Notes to Pharmacist: *[facility] for [facility]Rx and Interaction Alerts*Taking amLODIPine-Atorvastatin [...] *Reorder from [facility] for eRx and Interaction Alerts*Taking AZELASTINE 137 MCG (0.1 %) NASAL SPRAY , Notes to Pharmacist: *[facility]*Taking LOSARTAN , Notes to Pharmacist: *[facility] and Interaction Alerts* Objective: * Physical Examination:? Plan: * Treatment: * Procedure Codes:? Billing Information: * Visit Code:? * Procedure Codes:? * * Date:?
--- OUTSIDE RECORDS SUMMARY | 2024-10-25 08:43 | XMS_ITS | Patient Health Record ---
Author Organization [facility] Primary Care Address [address] [place] [id number] Care Team Providers Care Scutcher Tender Name Role Phone Migration, Provider Unavailable Unavailable [...] 0.1 x10E3/uL HEMATOCRIT 43.8 % HEMATOLOGY COMMENTS: AGRONOMY SUPERVISOR HEMOGLOBIN 14.7 g/dL IMMATURE CELLS AGRONOMY SUPERVISOR IMMATURE GRANS (ABS) 0.0 x10E3/uL IMMATURE GRANULOCYTES 0 % LYMPHS 15 % LYMPHS (ABSOLUTE) 1.1 x10E3/uL MCH 27.3 pg MCHC 33.6 g/dL MCV 81 fL MONOCYTES 11 % MONOCYTES(ABSOLUTE) 0.8 x10E3/uL NEUTROPHILS 71 % NEUTROPHILS (ABSOLUTE) 5.2 x10E3/uL NRBC AGRONOMY SUPERVISOR PLATELETS 348 x10E3/uL RBC 5.38 x10E6/uL RDW [...] date:05/18/2024 12:00:00 AM Interpretation: Performing Lab: Notes/Report: Reason For Referral No Information Medications Medication SIG (Take, Route, Frequency, Duration) Notes Start Date End Date Status Azelastine HCl 137 MCG/SPRAY Nasal 05/18/2024 Active Qvar RediHaler 80 MCG/ACT Inhalation 05/18/2024 Active amLODIPine-Atorvastatin 10-10 MG Oral 05/18/2024 Active Arnuity Ellipta 200 MCG/ACT Inhalation 05/18/2024 Active Clobetasol Propionate 0.05 % External 05/18/2024 Active AZELASTINE 137 MCG (0.1 %) NASAL SPRAY *Reorder from [employer] for eRx and Interaction Alerts* 05/18/2024 Active Cephalexin 500 MG Oral 05/18/2024 A ctive ALBUTEROL 90 MCG-BUDESONIDE 80 MCG/ACTUATION HFA AEROSOL INHALER *Reorder from [employer] for eRx and Interaction Alerts* 05/18/2024 Active Doxycycline Hyclate 100 MG Oral 05/18/2024 Active LOSARTAN *Reorder from [employer] for eRx and Interaction Alerts* 05/18/2024 Active Fluticasone-Salmeterol 100-50 MCG/ACT Inhalation 05/18/2024 Active Fluticasone Propionate HFA 110 MCG/ACT Inhalation 05/18/2024 Active Meloxicam 7.5 MG Oral 05/18/2024 Ac tive Losartan Potassium-HCTZ 50-12.5 MG Oral 05/18/2024 Active Albuterol Sulfate HFA 108 (90 Base) MCG/ACT Inhalation 05/18/2024 Active methylPREDNISolone 4 MG Oral 05/18/2024 Active Vital Signs Heart Rate 71 /min 05/18/2024 Temperature 97.7 degrees Fahrenheit 05/18/2024 Oximetry 94 % 05/18/2024 Blood pressure diastolic 79 mm Hg 05/18/2024 Weight-kg 98.34 kg 05/18/2024 Blood pressure systolic 167 mm Hg 05/18/2024 Weight 216.80 lbs 05/18/2024 Encounters Encounter Location Date Provider Diagnosis [facility] [address] [place] [address], [place] [address] 05/18/2024 Provider Migration Cellulitis of right upper limb L03.113 ; Localized swelling, mass and lump, unspecified upper limb R22.30 ; Localized swelling, mass and lump, right upper limb R22.31 ; Bitten or stung by nonvenomous insect and other nonvenomous arthropods, initial encounter W57.XXXA and Exposure to other animate mechanical forces, initial encounter W64.XXXA [facility] [address] [place] [address], [place] [address] 05/25/2024 Provider [facility] [address] [place] [address], [place] [address] 08/13/2024 Provider Migration [facility] [address] [place] [address], [place] [address] 09/24/2024 Provider Migration [facility] [address] [place] [address], [place] [address] 10/15/2024 Provider [facility] [address] [place] [address], [place] [address] 10/16/2024 Provider Migration Assessments Encounter Date Diagnosis (ICD Code) Assessment Notes Treat ment Notes Treatment Clinical Notes 05/18/2024 Cellulitis of right upper limb [...] - W64.XXXA) Plan Of Treatment No Information Insurance Providers Payer Name Payer Address Payer Phone Subscriber Number Group Number Insured Name Patient Relationship to Insured Coverage Start Date Coverage End Date [facility] [employer] ([employer]) BCBSBCBS [address] [place] [address] [id number] [place], YAO Self - patient is the insured
--- OUTSIDE RECORDS SUMMARY | 2024-10-25 08:43 | XMS_ITS ---
Author Organization [facility] enter Primary Care Address [address] [place] [address] Care Team Providers Care Director Of Counterintelligence Name Role Phone Migration, Provider Unavailable Unavailable REASON FOR VISIT TelEnc Encounters Encounter Location Date Provider Diagnosis [facility] [address] [place] [address] 09/24/2024 Provider Migration Plan Of Treatment No Information Progress Notes * YAO SILVADOB: [birth year] (69 yo M)Acc No.[id number]:09/24/2024 Patient:?YAO SILVA :1955???Age:69 Y???Sex:Male Address:[address], [place], [address] Subjective: * Chief Complaints: * ???TelEnc * Medical History:? * Surgical History:? * Hospitalization/Major Diagno stic Procedure:? * Medications:? Objective: * Physical Examination:? Plan: * Treatment: * Procedure Codes:? Billing Information: * Visit Code:? * Procedure Codes:? * * Date:?
--- OUTSIDE RECORDS SUMMARY | 2024-10-25 08:43 | XMS_ITS ---
Author Organization [facility] enter Primary Care Address [address] [facility] [place] [address] Care Team Providers Care Restuarant Crew Worker Name Role Phone Migration, Provider Unavailable Unavailable REASON FOR VISIT EMR-Alberto Encounters Encounter Location Date Provider Diagnosis [facility] Primary Care [address] [facility] [place] [address] 10/15/2024 Provider Migration Plan Of Treatment No Information Progress Notes * YAO SILVADOB: [birth year] (69 yo M)Acc No.[id number]:10/15/2024 Patient:?YAO SILVA :1955???Age:69 Y???Sex:Male Address:[address], [place], [address] Subjective: * Chief Complaints: * ???EMR-Alberto * Medical History:? * Surgical History:? * Hospitalization/Major Diagno stic Procedure:? * Medications:? Objective: * Physical Examination:? Plan: * Treatment: * Procedure Codes:? Billing Information: * Visit Code:? * Procedure Codes:? * * Date:?
== END 2024-10-25 09:01 | disposition home or self-care (01) ==
PROVIDERS: PCP Nurse Practitioner Family; Visit Provider Student in an Organized Health Care Education/Training Program
DX: M17.0 Bilateral primary osteoarthritis of knee (principal); R76.8 Other specified abnormal immunological findings in serum; M11.20 Other chondrocalcinosis, unspecified site
CPT/HCPCS: 20610; 99213

== ENCOUNTER → 2024-10-25 08:21 | Outpatient (BNVA) | payer BC, SELFPAY | PROVIDERS: PCP Nurse Practitioner Family; Visit Provider Student in an Organized Health Care Education/Training Program | DX: M17.0 Bilateral primary osteoarthritis of knee (principal); R76.8 Other specified abnormal immunological findings in serum; M11.20 Other chondrocalcinosis, unspecified site | CPT/HCPCS: 20610; J7323 ==

== ENCOUNTER 2024-11-01 12:33 | Outpatient (AMB) | payer BC, SELFPAY ==
--- NOTE | 2024-11-01 12:45 | MHC.OFFVIS ---
Vital Signs 11/01/24 12:50 Height 5 ft 9.9 in Weight 219 lb 5.759 oz BMI 31.6 BP 130/78 Blood Pressure Location Lt brachial Position Sitting Pulse 61 Pulse Source Pulse Oximeter Pulse Oximetry (%) 98 Oxygen Delivery Method Room Air Intake Visit Reasons: Knee pain/Euflexxa inj Intake Note: Patient presents for knee pain/Euflexxa injection. Allergies ENVIROMENTAL Allergy (Intermediate, Uncoded 10/25/24 08:28) HAYFEVER HPI Comments Details: Patient is a 69-year-old male with hypertension and asthma who presents for follow-up Interval History: Last seen 09/2024. At that time he did not report any further monoarticular arthritis symptoms involving his wrists. Had a mild vasovagal reaction to Euflexxa. He is here today for his 3rd injection of Euflexxa. Rheumatologic History: Initially presented 06/2024 with sudden onset right wrist pain and swelling. Associated with inability to move the wrists. He was given a Medrol Dosepak with improvement in his pain over the course of a week. This was the 2nd occurrence it had happened a year prior to his 2023 presentation. No other autoimmune or connective tissue related review of systems. Presentation was consistent with CPPD and x-rays of the knees and wrists showed chondrocalcinosis as well No colchicine was offered at that time because this was not occurring that frequently. Also following up for bilateral osteoarthritis of his knees. 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 Allergic rhinitis Surgical History Hx of wisdom tooth extraction History of surgery Family History Mother Dementia Progressive supranuclear palsy Father High blood pressure High cholesterol Aneurysm Social History Alcohol intake: current Alcohol intake frequency: 3 or more drinks per day Patient Tobacco Use Status: Former Tobacco user Review of Systems Const Details: Review of Systems Constitutional: Denies fever, chills, weight loss ENT: Denies vision changes, eye pain or eye redness, dental caries, dry mouth GI: Denies nausea, vomiting, diarrhea, abdominal pain, change in BM Pulm: Denies SOB, LOPEZ, hemoptysis, wheezing Cards: Denies chest pain, palpitations Skin: Denies Raynaud's, rash, nail changes, photosensitivity, DIRECTOR [employer]ANDS: Denies headaches, weakness, paresthesias, recurrent falls MSK: as per HPI All other systems reviewed and are unremarkable except noted above Physical Exam Vital Signs: Last Vital Signs Pulse 61 11/01/24 12:50 BP 130/78 11/01/24 12:50 Pulse Ox 98 11/01/24 12:50 Oxygen Delivery Method Room Air 11/01/24 12:50 BMI result Body Mass Index 31.6 Physical Examination Patient well appearing and in no apparent painful distress Able to rise from chair without support. ?Gait normal. Constitutional Mucous membranes pink and moist patient alert and cooperative HEENT Conjunctiva and sclera clear. ?Pupils equal round and reactive to light. ?No lymphadenopathy. ?Normal dentition. Salivary pool adequate Respiratory System Normal respiratory effort and able to speak in complete sentences. ?Clear to auscultation bilaterally. ?No crackles, rales, rhonchi, wheezes heard. Cardiac System Regular rate and rhythm. ?S1 and S2 heard no murmurs. ?Radial pulses intact bilaterally MSK Hands:.??He notably has large fingers. Unsure if this is swelling because the size was equal bilaterally. There was no tenderness to palpation of the MCPs, PIPs or DIPs. DIPs had scattered [place] nodes. Able to make a fist Wrists: Right wrist with some fullness which may indicate some synovial thickening when compared to the left wrist however there was full range of motion and no tenderness to palpation. Elbows: Full range of motion without pain. No tenderness, weakness, swelling, increased warmth or erythema. Shoulders: Full range of motion without pain. No tenderness, weakness, swelling, increased warmth or erythema. Knees:.???Left knee with moderate effusion. Right knee without effusion. Ankles:.??Normal pain-free range of motion without tenderness, swelling, increased warmth or erythema. Feet:.??Normal pain-free range of motion without tenderness, swelling, increased warmth or erythema. Office Procedures AMB Joint Injection/Aspiration Joint Injection/Aspiration Details: Procedure was explained to the patient and consent was obtained. ? The area of interest was identified and confirmed with patient. ?This was subsequently cleaned with chlorhexidine x3. ? The area was then anesthetized using ethyl chloride spray. 2 cc Euflexxa was injected without issue. ?Minimal to no bleeding. ?Patient tolerated procedure. Primary Site: left knee Prep: site was prepped using aseptic technique and ethochloride spray was applied Injected: other Approach Used: anterior Procedure: The patient tolerated the procedure well Coding 48933 - Large joint Procedure code (CPT) selection complete AMB Joint Injection/Aspiration Joint Injection/Aspiration Details: Procedure was explained to the patient and consent was obtained. ? The area of interest was identified and confirmed with patient. ?This was subsequently cleaned with chlorhexidine x3. ? The area was then anesthetized using ethyl chloride spray. 2 cc Euflexxa was injected without issue. ?Minimal to no bleeding. ?Patient tolerated procedure. Primary Site: right knee Prep: site was prepped using aseptic technique and ethochloride spray was applied Injected: other Approach Used: anterior Procedure: The patient tolerated the procedure well Coding 09810 - Large joint Procedure code (CPT) selection complete Office Meds Euflexxa 10 mg/mL (mw 2.4-3.6 million) intra-articular syringe Performing Provider: Asia Almaguer MD Performing Location: [facility] [place] [facility] Administered by: Asia Almaguer MD on 11/01/24 14:04 Dose Route Admin Location Dispensed Lot Number Expiration Date [facility] [employer] 20 mg intra-articular left knee 2 mL [id number] 08/27/25 [address]-0 [employer] Euflexxa 10 mg/mL (mw 2.4-3.6 million) intra-articular syringe Performing Provider: Asia Almaguer MD Performing Location: [facility] [place] [facility] Administered by: Asia Almaguer MD on 11/01/24 14:04 Dose Route Admin Location Dispensed Lot Number Expiration Date [facility] [employer] 20 mg intra-articular right knee 2 mL [id number] 08/27/25 [address]-1 [employer] Results Reviewed Results Reviewed: Laboratory Tests 08/03/24 16:01 WBC 5.3 RBC 5.36 Hgb 14.5 Hct 43.2 Plt Count 297 ESR 8 Sodium 135 Potassium 4.4 Chloride 97 Carbon Dioxide 28 BUN 9 Creatinine 0.76 Uric Acid 3.8 AST 23 ALT 22 C-Reactive Protein 0.49 Rheumatoid Factor < 13.0 Cycl Citrul Peptide IgG <16 MAURY Screen POSITIVE A MAURY Titer 1:80 H Sm (Hazel) Antibody <1.0 NEG SM/PIPE INSTALLER IgG Antibody <1.0 NEG Double Strand DNA Ab 1 Complement C3 132 Complement C4 21 XR Bilateral Knee 07/2024 (my read) Left knee with Kellgren grade 2-3. It evidence of chondrocalcinosis Right knee with Kellgren grade 2. XR bilateral hands and wrists 07/2024 (my read) No evidence of inflammatory arthritis such as periarticular osteopenia or erosions. Normal carpal space no evidence of carpal crowding. Faint chondrocalcinosis of the TFCC of the left hand. Knee Aspirate 10/18/24 Laboratory Tests 10/18/24 11:18 Synovial WBC 0.300 Synovial RBC < 0.002 Synovial Neutrophils 10 Synovial Lymphocytes 86 Synovial Other Cells 4 Procedure/Result Gram Stain - Final Anaerobic Culture - Final ???NO GROWTH AFTER 5 DAYS Gross Specimen Examination - Final Fluid Crystals - No crystals seen Joint Fluid Culture - Final ???No growth after 2 days Assessment & Plan Assessment & Plan (1) Bilateral primary osteoarthritis of knee: Code(s): M17.0 - Bilateral primary osteoarthritis of knee Category: Medical Plan: #Bilateral Knee OA Bilateral knee OA left worse than right. Non inflammatory knee aspirate Third dose of Euflexxa given Plan - RTC 6 months (2) Calcium pyrophosphate deposition disease (CPPD): Code(s): M11.20 - Other chondrocalcinosis, unspecified site Category: Medical Plan: #Non crystal proven CPPD Patient with a history of monoarticular arthritis involving the wrist that responded to prednisone. Differentials include rheumatoid arthritis, spondyloarthritis, reactive arthritis, sarcoidosis Knee and wrist x-rays confirm evidence of chondrocalcinosis. RF and CCP negative. ESR and CRP are normal now. His wrist pain was likely due to CPPD Plan - No colchicine or further therapies at this time. - If recurrent we will consider colchicine therapy (3) Positive MAURY (antinuclear antibody): Code(s): R76.8 - Other specified abnormal immunological findings in serum Category: Medical Plan: #Positive MAURY The presence of antinuclear antibodies (MAURY) is mainly associated with connective tissue diseases (CTD). ?However, their presence is found in healthy people especially in women and patients >65. ?In healthy individuals, the frequency of MAURY has been shown to be 31.7% of individuals at 1:40 serum dilution, 13.3% at 1:80, 5.0% at 1:160, and 3.3% at 1:320 (2). Some drugs and xenobiotics are also important for the development of MAURY (hydralazine, hydrochlorothiazide, minocycline, terbinafine, ciprofloxacin, furosemide, omeprazole). Moreover, the deficiency of vitamin D in the body of patients correlates with occurrence of these antibodies (1). At this time there is low suspicion for a connective tissue disease. While it is uncommon to have a positive MAURY in a male over the age of 65 he is on hydrochlorothiazide which has been known to induce MAURY development. He has no signs or symptoms concerning for connective tissue disease at this time ? 1. Sary?lizzette Rodrigues, Niyah Hi, Radha Perez. Antinuclear antibodies in healthy people and non-rheumatic diseases - diagnostic and clinical implications. Reumatologia. 2018;56(4):243-248. doi: 10.5114/reum.2018.93971. Epub 2017May 28. PMID: 85969417; PMCID: [id number]. 2. Muñiz EM, Pradeep TE, Katiuska JS, Daphnie B, Layton R, Shannan MJ, Robert T, Samy JA, Allyson JR, Misty RG, Wei RN, Sonido JS, Milton NF, Braden RJ, Kendall Y, Kehinde A, Harvinder MR, Raphael BEVERLY. Range of antinuclear antibodies in healthy individuals. Arthritis Rheum. 1996;40(9):1601-11. doi: 10.1002/art.9819054478. PMID: 0708802. Plan I spent 20 minutes reviewing the record and labs, seeing the patient, discussing the treatment plan and documenting in the medical record ? Orders: Orders AMB Joint Injection/Aspiration Today M17.0 - Bilateral primary osteoarthritis of knee AMB Joint Injection/Aspiration Today M17.0 - Bilateral primary osteoarthritis of knee Medications: New Euflexxa (sodium hyaluronate (viscosup)) 20 mg (2 mL) intra-articular ONCE 2 mL 0RF NS M17.0 - Bilateral primary osteoarthritis of knee Euflexxa (sodium hyaluronate (viscosup)) 20 mg (2 mL) intra-articular ONCE 2 mL 0RF NS M17.0 - Bilateral primary osteoarthritis of knee Coding Level of Care Code Est Pt Level 3 (00485) Diagnoses Bilateral primary osteoarthritis of knee M17.0 Calcium pyrophosphate deposition disease (CPPD) M11.20 Positive MAURY (antinuclear antibody) R76.8 CPT Codes Coding - 66994 Large joint: 96365 - Large joint ([id number]) Coding - 29930 Large joint: 05389 - Large joint ([id number])
[2024-11-01 12:50] VITALS: BP 130/78; PULSE 61; O2SAT 98; BMI 31.6
== END 2024-11-01 13:25 | disposition home or self-care (01) ==
PROVIDERS: PCP Nurse Practitioner Family; Visit Provider Student in an Organized Health Care Education/Training Program
DX: M17.0 Bilateral primary osteoarthritis of knee (principal); M11.20 Other chondrocalcinosis, unspecified site; R76.8 Other specified abnormal immunological findings in serum
CPT/HCPCS: 20610; 99213

== ENCOUNTER → 2024-11-01 12:33 | Outpatient (BNVA) | payer BC, SELFPAY | PROVIDERS: PCP Nurse Practitioner Family; Visit Provider Student in an Organized Health Care Education/Training Program | DX: M17.0 Bilateral primary osteoarthritis of knee (principal); M11.20 Other chondrocalcinosis, unspecified site; R76.8 Other specified abnormal immunological findings in serum | CPT/HCPCS: 20610; J7323 ==

== ENCOUNTER 2025-04-05 12:24 | Outpatient (AMB) | payer BC, SELFPAY ==
--- OUTSIDE RECORDS SUMMARY | 2024-10-16 05:00 | XMS_ITS ---
Author Organization [facility] enter Primary Care Address [address] [place] [address] Care Team Providers Care Regional Controller Name Role Phone Migration, Provider Unavailable Unavailable REASON FOR VISIT EMR-Alberto Medications Medication SIG (Take, Route, Frequency, Duration) Notes Start Date End Date Status Qvar RediHaler 80 MCG/ACT Aerosol Breath Activated Inhalation 05/18/2024 Act geno Arnuity Ellipta 200 MCG/ACT Aerosol Powder Breath Activated Inhalation 05/18/2024 Active AZELASTINE 137 MCG (0.1 %) NASAL SPRAY *Reorder from [employer] for eRx and Interaction Alerts* 05/18/2024 Active ALBUTEROL 90 MCG-BUDESONIDE 80 MCG/ACTUATION HFA AEROSOL INHALER *Reorder from [employer] for eRx and Interaction Alerts* 05/18/2024 Active LOSARTAN *Reorder from [employer] for eRx and Interaction Alerts* 05/18/2024 Active [...] Active Encounters Encounter Location Date Provider Diagnosis [facility] Primary Care [address] [place] [address] 10/16/2024 Provider Migration Plan Of Treatment No Information Progress Notes * YAO SILVADOB: [birth year] (69 yo M)Acc No.[id number]:10/16/2024 Patient: YAO KNOTT :1955 A ge:69 Y S ex:Male Address: [address] [place], [address] Subjective: * Chief Complaints: * E MR-Alberto [...] INHALER , Notes to Pharmacist: *[facility]*AZELASTINE 137 MCG (0.1 %) NASAL SPRAY , Notes to Pharmacist: *[facility] Interaction [facility]*LOSARTAN , Notes to Pharmacist: *[facility] Interaction [facility]s*Taking amLODIPine-Atorvastatin [...] INHALER , Notes to Pharmacist: *[facility]*Taking AZELASTINE 137 MCG (0.1 %) NASAL SPRAY , Notes to Pharmacist: *[facility]*Taking LOSARTAN , Notes to Pharmacist: *[facility] and Interaction [facility]s* * * Date:
--- NOTE | 2025-04-05 12:30 | A.OFFVIS_ITS ---
Vital Signs 04/05/25 12:31 Height 5 ft 9.9 in Weight 215 lb 13.321 oz BMI 31.1 BP 130/80 Blood Pressure Location Lt brachial Position Sitting Pulse 59 Pulse Source Pulse Oximeter Pulse Oximetry (%) 98 Oxygen Delivery Method Room Air Intake Visit Reasons: Knee pain/Euflexxa inj Intake Note: Patient presents for follow up, states his insurance would not cover another Euflexxa injection. Allergies ENVIROMENTAL Allergy (Intermediate, Uncoded 04/05/25 12:36) HAYFEVER Medication List - Last Reconciled 04/05/25 by Asia Almaguer MD albuterol sulfate 90 mcg/actuation 2 puffs inhalation Q6H PRN amlodipine 10 mg PO DAILY azelastine 1 spray intranasal BID fluticasone propionate 110 mcg/actuation 1 puff inhalation BID hydrochlorothiazide 12.5 mg PO DAILY HPI Comments Details: Patient is a 69-year-old male with hypertension and asthma who presents for follow-up Interval History: Last seen 11/01/24 with me - Received 3rd dose of Euflexxa - No further CPPD flares Today, - gel injections did not help - Still has knee pain especially with going up and down stairs Rheumatologic History: Initially presented 06/2024 with sudden onset right wrist pain and swelling. Associated with inability to move the wrists. He was given a Medrol Dosepak wi th improvement in his pain over the course of a week. This was the 2nd occurrence it had happened a year prior to his 2023 presentation. No other autoimmune or connective tissue related review of systems. Presentation was consistent with CPPD and x-rays of the knees and wrists showed chondrocalcinosis as well No colchicine was offered at that time because this was not occurring that frequently. Also following up for bilateral osteoarthritis of his knees. Current Rheumatology Medication(s): [facility] Medical History (Updated 08/24/24 @ 14:27 by Asia Almaguer MD) Bilateral primary osteoarthritis of knee Positive MAURY (antinuclear antibody) Calcium pyrophosphate deposition disease (CPPD) Induratio penis plastica Hyperlipidemia Hemorrhoids Degeneration of lumbar or lumbosacral intervertebral disc Cough variant asthma Arthropathy of lumbar facet joint Allergic rhinitis Surgical History Hx of wisdom tooth extraction History of surgery Family History Mother Dementia Progressive supranuclear palsy Father High blood pressure High cholesterol Aneurysm Social History Alcohol intake: current Alcohol intake frequency: 3 or more drinks per day Patient Tobacco Use Status: Former Tobacco user Review of Systems Const Details: Review of Systems Constitutional: Denies fever, chills, weight loss ENT: Denies vision changes, eye pain or eye redness, dental caries, dry mouth GI: Denies nausea, vomiting, diarrhea, abdominal pain, change in BM Pulm: Denies SOB, LOPEZ, hemoptysis, wheezing Cards: Denies chest pain, palpitations Skin: Denies Raynaud's, rash, nail changes, photosensitivity, UPPER SHAPER: Denies headaches, weakness, paresthesias, recurrent falls MSK: as per HPI All other systems reviewed and are unremarkable except noted above Physical Exam Vital Signs: Last Vital Signs Pulse 59 04/05/25 12:31 BP 130/80 04/05/25 12:31 Pulse Ox 98 04/05/25 12:31 Oxygen Delivery Method Room Air 04/05/25 12:31 BMI result Body Mass Index 31.1 Physical Examination Patient well appearing and in no apparent painful distress Able to rise from chair without support. ?Gait normal. Constitutional Mucous membranes pink and moist patient alert and cooperative HEENT Conjunctiva and sclera clear. ?Pupils equal round and reactive to light. ?No lymphadenopathy. ?Normal dentition. Salivary pool adequate Respiratory System Normal respiratory effort and able to speak in complete sentences. ?Clear to auscultation bilaterally. ?No crackles, rales, rhonchi, wheezes heard. Cardiac System Regular rate and rhythm. ?S1 and S2 heard no murmurs. ?Radial pulses intact bilaterally MSK Hands:.??He notably has large fingers. Unsure if this is swelling because the size was equal bilaterally. There was no tenderness to palpation of the MCPs, PIPs or DIPs. DIPs had scattered [place] nodes. Able to make a fist Wrists: Right wrist with some fullness which may indicate some synovial thickening when compared to the left wrist however there was full range of motion and no tenderness to palpation. Elbows: Full range of motion without pain. No tenderness, weakness, swelling, increased warmth or erythema. Shoulders: Full range of motion without pain. No tenderness, weakness, swelling, increased warmth or erythema. Knees:.???Left knee with moderate effusion. Right knee without effusion. Ankles:.??Normal pain-free range of motion without tenderness, swelling, increased warmth or erythema. Feet:.??Normal pain-free range of motion without tenderness, swelling, increased warmth or erythema. Office Procedures AMB Joint Injection/Aspiration Joint Injection/Aspiration Details: Procedure was explained to the patient and informed consent was obtained. ? Risks associated with the procedure were discussed with the patient including but not limited to bleeding, infection, drug reactions and reactions to the topical anesthetic. Patient made aware of signs to look out for infectious complications. The area of interest was identified and confirmed with patient. ?This was subsequently cleaned with chlorhexidine x 2. ? The area was then anesthetized using ethyl chloride spray. 40 mg Kenalog with 1 cc 1% lidocaine was injected without issue. ?Minimal to no bleeding. ?Patient tolerated procedure. Primary Site: right knee Prep: site was prepped using aseptic technique and ethochloride spray was applied Injected: 40 mg of, Kenalog, with 1 mL of and 1% plain lidocaine Approach Used: anterior Procedure: The patient tolerated the procedure well Coding 96192 - Large joint Procedure code (CPT) selection complete AMB Joint Injection/Aspiration Joint Injection/Aspiration Details: Procedure was explained to the patient and informed consent was obtained. ? Risks associated with the procedure were discussed with the patient including but not limited to bleeding, infection, drug reactions and reactions to the topical anesthetic. Patient made aware of signs to look out for infectious complications. The area of interest was identified and confirmed with patient. ?This was subsequently cleaned with chlorhexidine x 2. ? The area was then anesthetized using ethyl chloride spray. 40 mg Kenalog with 1 cc 1% lidocaine was injected without issue. ?Minimal to no bleeding. ?Patient tolerated procedure. Primary Site: left knee Prep: site was prepped using aseptic technique and ethochloride spray was applied Injected: 40 mg of, Kenalog, with 1 mL of and 1% plain lidocaine Approach Used: anterior Procedure: The patient tolerated the procedure well Coding 77399 - Large joint Procedure code (CPT) selection complete Office Meds lidocaine (PF) 10 mg/mL (1 %) injection solution Performing Provider: Asia Almaguer MD Performing Location: [facility] Administered by: Asia Almaguer MD on 04/05/25 14:00 Dose Route Admin Location Dispensed Lot Number Expiration Date [employer] Policy 1 mL Infiltration right knee 2 mL [id number] 11/26/26 97294-222-93 [employer] Total Dispensed Waste 2 mL 50 % Kenalog 40 mg/mL suspension for injection Performing Provider: Asia Almaguer MD Performing Location: [facility] Administered by: Asia Almaguer MD on 04/05/25 14:00 Dose Route Admin Location Dispensed Lot Number Expiration Date [employer] Policy 40 mg intra-articular right knee 1 mL [id number] 12/27/26 5709-9253-26 [facility] Total Dispensed Waste 1 mL 0 % lidocaine (PF) 10 mg/mL (1 %) injection solution Performing Provider: Asia Almaguer MD Performing Location: [facility] Administered by: Asia Almaguer MD on 04/05/25 14:00 Dose Route Admin Location Dispensed Lot Number Expiration Date [employer] Policy 1 mL Infiltration left knee 2 mL [id number] 11/26/26 08572-179-44 [employer] Total Dispensed Waste 2 mL 50 % Kenalog 40 mg/mL suspension for injection Performing Provider: Asia Almaguer MD Performing Location: [facility] Administered by: Asia Almaguer MD on 04/05/25 14:00 Dose Route Admin Location Dispensed Lot Number Expiration Date [employer] Policy 40 mg intra-articular left knee 1 mL [id number] 12/27/26 3643-0809-19 [facility] Total Dispensed Waste 1 mL 0 % Results Reviewed Results Reviewed: Laboratory Tests 08/03/24 16:01 WBC 5.3 RBC 5.36 Hgb 14.5 Hct 43.2 Plt Count 297 ESR 8 Sodium 135 Potassium 4.4 Chloride 97 Carbon Dioxide 28 BUN 9 Creatinine 0.76 Uric Acid 3.8 AST 23 ALT 22 C-Reactive Protein 0.49 Rheumatoid Factor < 13.0 Cycl Citrul Peptide IgG <16 MAURY Screen POSITIVE A MAURY Titer 1:80 H Sm (Hazel) Antibody <1.0 NEG SM/NURSING INFORMATICS SPECIALIST IgG Antibody <1.0 NEG Double Strand DNA Ab 1 Complement C3 132 Complement C4 21 XR Bilateral Knee 07/2024 (my read) Left knee with Kellgren grade 2-3. It evidence of chondrocalcinosis Right knee with Kellgren grade 2. XR bilateral hands and wrists 07/2024 (my read) No evidence of inflammatory arthritis such as periarticular osteopenia or erosions. Normal carpal space no evidence of carpal crowding. Faint chondrocalcinosis of the TFCC of the left hand. Knee Aspirate 10/18/24 Laboratory Tests 10/18/24 11:18 Synovial WBC 0.300 Synovial RBC < 0.002 Synovial Neutrophils 10 Synovial Lymphocytes 86 Synovial Other Cells 4 Procedure/Result Gram Stain - Final Anaerobic Culture - Final ???NO GROWTH AFTER 5 DAYS Gross Specimen Examination - Final Fluid Crystals - No crystals seen Joint Fluid Culture - Final ???No growth after 2 days Assessment & Plan Assessment & Plan (1) Bilateral primary osteoarthritis of knee: Code(s): M17.0 - Bilateral primary osteoarthritis of knee Category: Medical Plan: #Bilateral Knee OA Bilateral knee OA left worse than right. Non inflammatory knee aspirate Bilateral steroid injections today Plan - RTC 4 months (2) Calcium pyrophosphate deposition disease (CPPD): Code(s): M11.20 - Other chondrocalcinosis, unspecified site Category: Medical Plan: #Non crystal proven CPPD Patient with a history of monoarticular arthritis involving the wrist that responded to prednisone. Differentials include rheumatoid arthritis, spondyloarthritis, reactive arthritis, sarcoidosis Knee and wrist x-rays confirm evidence of chondrocalcinosis. RF and CCP negative. ESR and CRP are normal now. His wrist pain was likely due to CPPD Plan - No colchicine or further therapies at this time. - If recurrent we will consider colchicine therapy (3) Positive MAURY (antinuclear antibody): Code(s): R76.8 - Other specified abnormal immunological findings in serum Category: Medical Plan: #Positive MAURY The presence of antinuclear antibodies (MAURY) is mainly associated with connective tissue diseases (CTD). ?However, their presence is found in healthy people especially in women and patients >65. ?In healthy individuals, the frequency of MAURY has been shown to be 31.7% of individuals at 1:40 serum dilution, 13.3% at 1:80, 5.0% at 1:160, and 3.3% at 1:320 (2). Some drugs and xenobiotics are also important for the development of MAURY (hydralazine, hydrochlorothiazide, minocycline, terbinafine, ciprofloxacin, furosemide, omeprazole). Moreover, the deficiency of vitamin D in the body of patients correlates with occurrence of these antibodies (1). At this time there is low suspicion for a connective tissue disease. While it is uncommon to have a positive MAURY in a male over the age of 65 he is on hydrochlorothiazide which has been known to induce MAURY development. He has no signs or symptoms concerning for connective tissue disease at this time ? 1. Sary?lizzette Rodrigues, Niyah Hi, Radha Perez. Antinuclear antibodies in healthy people and non-rheumatic diseases - diagnostic and clinical implications. Reumatologia. 2018;56(4):243-248. doi: 10.5114/reum.2018.94224. Epub 2017May 28. PMID: 72838950; PMCID: [id number]. 2. Antonino EM, Pradeep TE, Katiuska JS, Daphnie B, Layton R, Shannan MJ, Robert T, Samy JA, Allyson JR, Misty RG, Wei RN, Sonido JS, Milton NF, Braden RJ, Kendall Y, Kehinde A, Harvinder MR, Raphael BEVERLY. Range of antinuclear antibodies in healthy individuals. Arthritis Rheum. 1996;40(9):1601-11. doi: 10.1002/art.4295317704. PMID: 1208476. Plan I spent 35 minutes reviewing the record and labs, seeing the patient, discussing the treatment plan and documenting in the medical record ? Orders: Orders AMB Joint Injection/Aspiration Today M17.0 - Bilateral primary osteoarthritis of knee AMB Joint Injection/Aspiration Today M17.0 - Bilateral primary osteoarthritis of knee Coding Level of Care Code Est Pt Level 4 (83603) Diagnoses Bilateral primary osteoarthritis of knee M17.0 Calcium pyrophosphate deposition disease (CPPD) M11.20 Positive MAURY (antinuclear antibody) R76.8 CPT Codes Coding - 71243 Large joint: 11662 - Large joint ([id number]) Coding - 22579 Large joint: 91499 - Large joint ([id number])
[2025-04-05 12:31] VITALS: BP 130/80; PULSE 59; O2SAT 98; BMI 31.1
== END 2025-04-05 13:13 | disposition home or self-care (01) ==
LOC: HO.RHE 12:25
PROVIDERS: PCP Nurse Practitioner Family; Visit Provider Student in an Organized Health Care Education/Training Program
DX: M17.0 Bilateral primary osteoarthritis of knee (principal); M11.20 Other chondrocalcinosis, unspecified site; R76.8 Other specified abnormal immunological findings in serum
CPT/HCPCS: 20610; 99214

== ENCOUNTER → 2025-04-05 12:24 | Outpatient (BNVA) | payer BC, SELFPAY | PROVIDERS: PCP Nurse Practitioner Family; Visit Provider Student in an Organized Health Care Education/Training Program | DX: M17.0 Bilateral primary osteoarthritis of knee (principal) | CPT/HCPCS: 20610; J2003; J3300 ==

== ENCOUNTER 2025-05-16 09:25 | Outpatient (AMB) | payer BC, SELFPAY ==
--- OUTSIDE RECORDS SUMMARY | 2024-10-16 05:00 | XMS_ITS ---
Author Organization [facility] enter Primary Care Address [address] [place] [address] Care Team Providers Care Marble Helper Name Role Phone Migration, Provider Unavailable Unavailable REASON FOR VISIT EMR-Alberto Medications Medication SIG (Take, Route, Frequency, Duration) Notes Start Date End Date Status Qvar RediHaler 80 MCG/ACT Aerosol Breath Activated Inhalation 05/18/2024 Act geno Arnuity Ellipta 200 MCG/ACT Aerosol Powder Breath Activated Inhalation 05/18/2024 Active AZELASTINE 137 MCG (0.1 %) NASAL SPRAY *Reorder from [employer] for eRx and Interaction Alerts* 05/18/2024 Active ALBUTEROL 90 MCG-BUDESONIDE 80 MCG/ACTUATION HFA AEROSOL INHALER *Reorder from [employer] for eRx and Interaction Alerts* 05/18/2024 Active LOSARTAN *Reorder from [employer] for eRx and Interaction Alerts* 05/18/2024 Active [...] Active Encounters Encounter Location Date Provider Diagnosis [facility] Primary Care [address] [facility] [address] 10/16/2024 Provider Migration Plan Of Treatment No Information Progress Notes * YAO SILVADOB: [birth year] (70 yo M)Acc No.[id number]:10/16/2024 Patient: YAO KNOTT :1955 A ge:69 Y S ex:Male Address: [address] [place], [address] Subjective: * Chief Complaints: * E MR-Alberto [...] INHALER , Notes to Pharmacist: *[facility]*AZELASTINE 137 MCG (0.1 %) NASAL SPRAY , Notes to Pharmacist: *[facility]*LOSARTAN , Notes to Pharmacist: *[facility]*Taking amLODIPine-Atorvastatin 10-10 [...] INHALER , Notes to Pharmacist: *[facility]*Taking AZELASTINE 137 MCG (0.1 %) NASAL SPRAY , Notes to Pharmacist: *[facility] Interaction [facility]*Taking LOSARTAN , Notes to Pharmacist: *[facility]* * * Date:
== END 2025-05-16 09:57 | disposition home or self-care (01) ==
LOC: HO.HMGAL 09:25
PROVIDERS: PCP Nurse Practitioner Family; Visit Provider Registered Nurse Emergency
DX: J30.89 Other allergic rhinitis (principal)
CPT/HCPCS: 95117; 95165

== ENCOUNTER 2025-06-19 09:44 | Outpatient (AMB) | payer BC, SELFPAY ==
--- OUTSIDE RECORDS SUMMARY | 2024-08-13 05:00 | XMS_ITS ---
Author Organization [facility] enter Primary Care Address [address] [place] [address] Care Team Providers Care Oracle Database Analyst Name Role Phone Migration, Provider Unavailable Unavailable REASON FOR VISIT TelEnc Encounters Encounter Location Date Provider Diagnosis [facility] [address] [place] [address] 08/13/2024 Provider Migration Plan Of Treatment No Information Progress Notes * SILVAYAODOB: [birth year] (70 yo M)Acc No.[id number]:08/13/2024 Patient: YAO KNOTT :1955 A ge:69 Y S ex:Male Address:[address] [place], [address] Subjective: * Chief Complaints: * T elEnc * * Date:
--- OUTSIDE RECORDS SUMMARY | 2024-09-24 05:00 | XMS_ITS ---
Author Organization [facility] enter Primary Care Address [address] [place] [address] Care Team Providers Care Liquid Waste Treatment Plant Operator Name Role Phone Migration, Provider Unavailable Unavailable REASON FOR VISIT TelEnc Encounters Encounter Location Date Provider Diagnosis [facility] Ur[facility] Care [address] [place] [address], [place] [address] 09/24/2024 Provider Migration Plan Of Treatment No Information Progress Notes * SILVAYAODOB: [birth year] (70 yo M)Acc No.[id number]:09/24/2024 Patient: YAO KNOTT :1955 A ge:69 Y S ex:Male Address:[place], [address] Subjective: * Chief Complaints: * T elEnc * * Date:
--- OUTSIDE RECORDS SUMMARY | 2024-10-15 05:00 | XMS_ITS ---
Author Organization [facility] enter Primary Care Address [address] [place] [address] Care Team Providers Care Rn First Assistant Name Role Phone Migration, Provider Unavailable Unavailable REASON FOR VISIT EMR-Alberto Encounters Encounter Location Date Provider Diagnosis [facility] Primary Care [address] [place] [address] 10/15/2024 Provider Migration Plan Of Treatment No Information Progress Notes * RICARDOYAODOB: [birth year] (70 yo M)Acc No.[id number]:10/15/2024 Patient: YAO KNOTT :1955 A ge:69 Y S ex:Male Address:[address] [place], [address] Subjective: * Chief Complaints: * E MR-Alberto * * Date:
== END 2025-06-19 09:47 | disposition home or self-care (01) ==
LOC: HO.HMGAL 09:44
PROVIDERS: PCP Nurse Practitioner Family; Visit Provider Registered Nurse Emergency
DX: J30.89 Other allergic rhinitis (principal)
CPT/HCPCS: 95117; 95165

== ENCOUNTER 2025-07-19 10:02 | Outpatient (AMB) | payer BC, SELFPAY ==
--- OUTSIDE RECORDS SUMMARY | 2024-05-18 08:45 | XMS_ITS ---
Author Organization [facility] enter Primary Care Address [address] [place] [address] Care Team Providers Care Street Inspector Name Role Phone Migration, Provider Unavailable Unavailable [...] 0.1 x10E3/uL HEMATOCRIT 43.8 % HEMATOLOGY COMMENTS: REINFORCING STEEL WORKER WIRE MESH HEMOGLOBIN 14.7 g/dL IMMATURE CELLS REINFORCING STEEL WORKER WIRE MESH IMMATURE GRANS (ABS) 0.0 x10E3/uL IMMATURE GRANULOCYTES 0 % LYMPHS 15 % LYMPHS (ABSOLUTE) 1.1 x10E3/uL MCH 27.3 pg MCHC 33.6 g/dL MCV 81 fL MONOCYTES 11 % MONOCYTES(ABSOLUTE) 0.8 x10E3/uL NEUTROPHILS 71 % NEUTROPHILS (ABSOLUTE) 5.2 x10E3/uL NRBC REINFORCING STEEL WORKER WIRE MESH PLATELETS 348 x10E3/uL RBC 5.38 x10E6/uL RDW [...] Encounters Encounter Location Date Provider Diagnosis [facility] [address] [place] [address] 05/18/2024 Provider Migration Cellulitis of right upper [...] * FLORIN SILVA: [birth year] (70 yo M)Acc No.[id number]:05/18/2024 Progress Notes Patient: YAO KNOTT Provider: Jessica Dewitt :1955 A ge:69 Y S ex:Male Date:05/18/2024 Address: [address] , [facility], [id number] Objective: * Vitals: B P: 167/79 mm [...] EMATOCRIT 43.8 % * H EMATOLOGY COMMENTS: REINFORCING STEEL WORKER WIRE MESH * H EMOGLOBIN 14.7 g/dL * I MMATURE CELLS REINFORCING STEEL WORKER WIRE MESH * I MMATURE GRANS (ABS) 0.0 x10E3/uL * I MMATURE GRANULOCYTES 0 % * L YMPHS 15 % * L YMPHS (ABSOLUTE) 1.1 x10E3/uL * M CH 27.3 pg * M CHC 33.6 g/dL * M CV 81 fL * M ONOCYTES 11 % * M ONOCYTES(ABSOLUTE) 0.8 x10E3/uL * N EUTROPHILS 71 % * N EUTROPHILS (ABSOLUTE) 5.2 x10E3/uL * N RBC REINFORCING STEEL WORKER WIRE MESH * P LATELETS 348 x10E3/uL * R BC 5.38 x10E6/uL * R DW 12.9 % * W BC 7.4 x10E3/uL * Electronic signature of Prov ider Migration on 07/19/2025 at 12:10 PM EDT Sign off status: Pending * Provider: Jessica saba Migration Date: 0 05/18/2024 Generated for Melina che/Lizandro/Ayushsmitting on: 1 12:10 PM EDT
--- OUTSIDE RECORDS SUMMARY | 2024-05-25 05:00 | XMS_ITS ---
Author Organization [facility] enter Primary Care Address [address] [place] [address] Care Team Providers Care Plastering Supervisor Name Role Phone Migration, Provider Unavailable Unavailable REASON FOR VISIT TelEnc Encounters Encounter Location Date Provider Diagnosis [facility] [address] [place] [address], [place] [address] 05/25/2024 Provider Migration Plan Of Treatment No Information Progress Notes * SILVAYAODOB: [birth year] (70 yo M)Acc No.[id number]:05/25/2024 Patient: YAO KNOTT :1955 A ge:69 Y S ex:Male Address:[address] [place], [address] Subjective: * Chief Complaints: * T elEnc * * Date:
--- OUTSIDE RECORDS SUMMARY | 2024-08-13 05:00 | XMS_ITS ---
Author Organization [facility] enter Primary Care Address [address] [facility] [place] [address] Care Team Providers Care Lithopone Charger Name Role Phone Migration, Provider Unavailable Unavailable REASON FOR VISIT TelEnc Encounters Encounter Location Date Provider Diagnosis [facility] Urgent [facility] [address] [facility] [place] [address] 08/13/2024 Provider Migration Plan Of Treatment No Information Progress Notes * SILVAYAODOB: [birth year] (70 yo M)Acc No.[id number]:08/13/2024 Patient: YAO KNOTT :1955 A ge:69 Y S ex:Male Address:[address] [place], [address] Subjective: * Chief Complaints: * T elEnc * * Date:
--- OUTSIDE RECORDS SUMMARY | 2024-09-24 05:00 | XMS_ITS ---
Author Organization [facility] enter Primary Care Address [address] [place] [place] [address] Care Team Providers Care Television Journalist Name Role Phone Migration, Provider Unavailable Unavailable REASON FOR VISIT TelEnc Encounters Encounter Location Date Provider Diagnosis [facility] Urgent Care [address] [place] [address], [place] [address] 09/24/2024 Provider Migration Plan Of Treatment No Information Progress Notes * SILVAYAODOB: [birth year] (70 yo M)Acc No.[id number]:09/24/2024 Patient: YAO KNOTT :1955 A ge:69 Y S ex:Male Address:[place], [address] Subjective: * Chief Complaints: * T elEnc * * Date:
--- OUTSIDE RECORDS SUMMARY | 2024-10-15 05:00 | XMS_ITS ---
Author Organization [facility] enter Primary Care Address [address] [place] [address] Care Team Providers Care Watch Dial Printer Name Role Phone Migration, Provider Unavailable Unavailable REASON FOR VISIT EMR-Alberto Encounters Encounter Location Date Provider Diagnosis [facility] Primary Care [address] [place] [address] 10/15/2024 Provider Migration Plan Of Treatment No Information Progress Notes * RICARDOYAODOB: [birth year] (70 yo M)Acc No.[id number]:10/15/2024 Patient: YAO KNOTT :1955 A ge:69 Y S ex:Male Address:[address] [place], [address] Subjective: * Chief Complaints: * E MR-Alberto * * Date:
--- OUTSIDE RECORDS SUMMARY | 2024-10-16 05:00 | XMS_ITS ---
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 Name Role Phone Migration, Provider Unavailable Unavailable REASON FOR VISIT EMR-Alberto Medications Medication SIG (Take, Route, Frequency, Duration) Notes Start Date End Date Status Qvar RediHaler 80 MCG/ACT Aerosol Breath Activated Inhalation 05/18/2024 Act geno Arnuity Ellipta 200 MCG/ACT Aerosol Powder Breath Activated Inhalation 05/18/2024 Active AZELASTINE 137 MCG (0.1 %) NASAL SPRAY *Reorder from [employer] for eRx and Interaction Alerts* 05/18/2024 Active ALBUTEROL 90 MCG-BUDESONIDE 80 MCG/ACTUATION HFA AEROSOL INHALER *Reorder from [employer] for eRx and Interaction Alerts* 05/18/2024 Active LOSARTAN *Reorder from [employer] for eRx and Interaction Alerts* 05/18/2024 Active [...] Encounters Encounter Location Date Provider Diagnosis [facility] Primary Care [address] [place] [address] 10/16/2024 Provider Migration Plan Of Treatment No Information Progress Notes * YAO SILVADOB: [birth year] (70 yo M)Acc No.[id number]:10/16/2024 Patient: YAO KNOTT :1955 A ge:69 Y S ex:Male Address: [address] [place], [address] Subjective: * Chief Complaints: * E MR-Alberto [...] INHALER , Notes to Pharmacist: [facility]*AZELASTINE 137 MCG (0.1 %) NASAL SPRAY , Notes to Pharmacist: [facility] Interaction [facility]*LOSARTAN , Notes to Pharmacist: *[facility] Interaction [facility]s*Taking amLODIPine-Atorvastatin [...] INHALER , Notes to Pharmacist: *[facility]*Taking AZELASTINE 137 MCG (0.1 %) NASAL SPRAY , Notes to Pharmacist: [facility] Interaction [facility]*Taking LOSARTAN , Notes to Pharmacist: [facility] Interaction [facility]* * * Date:
--- OUTSIDE RECORDS SUMMARY | 2025-07-19 12:11 | XMS_ITS | Patient Health Record ---
Author Organization [facility] Address [address] [place] [address] Care Team Providers Care Chart Calculator Name Role Phone Migration, Provider Unavailable Unavailable Reason For Referral No Information Medications Medication SIG (Take, Route, Frequency, Duration) Notes Start Date End Date Status Azelastine HCl 137 MCG/SPRAY Solution Nasal 05/18/2024 Active Qvar RediHaler 80 MCG/ACT Aerosol Breath Activated Inhalation 05/18/2024 Act geno amLODIPine-Atorvastatin 10-10 MG Tablet Oral 05/18/2024 Active Arnuity Ellipta 200 MCG/ACT Aerosol Powder Breath Activated Inhalation 05/18/2024 Active Clobetasol Propionate 0.05 % Ointment External 05/18/2024 Active AZELASTINE 137 MCG (0.1 %) NASAL SPRAY *Reorder from [employer] for eRx and Interaction Alerts* 05/18/2024 Active Cephalexin 500 MG Tablet Oral 05/18/2024 Active ALBUTEROL 90 MCG-BUDESONIDE 80 MCG/ACTUATION HFA AEROSOL INHALER *Reorder from [employer] for eRx and Interaction Alerts* 05/18/2024 Active Doxycycline Hyclate 100 MG Capsule Oral 05/18/2024 Active LOSARTAN *Reorder from [email or web address] for eRx and Interaction Alerts* 05/18/2024 Active Fluticasone-Salmeterol 100-50 MCG/ACT Aerosol Powder Breath Activated Inhalation 05/18/2024 Acti ve Fluticasone Propionate HFA 110 MCG/ACT Aerosol Inhalation 05/18/2024 Acti ve Meloxicam 7.5 MG Tablet Oral 05/18/2024 Active Losartan Potassium-HCTZ 50-12.5 MG Tablet Oral 05/18/2024 Active Albuterol Sulfate HFA 108 (90 Base) MCG/ACT Aerosol Solution Inhalation 05/18/2024 Active methylPREDNISolone 4 MG Tablet Therapy Pack Oral 05/18/2024 Active Encounters Encounter Location Date Provider Diagnosis [facility] [address] [facility] [place] [address] 08/13/2024 Provider Migration [facility] [address] [place] [place] [address] 09/24/2024 Provider Migration [facility] [address] [place] [place] [address] 10/15/2024 Provider Migration [facility] [address] [place] [place] [address] 10/16/2024 Provider Migration Plan Of Treatment No Information Insurance Providers Payer Name Payer Address Payer Phone Subscriber Number Group Number Insured Name Patient Relationship to Insured Coverage Start Date Coverage End Date [facility] [employer] ([employer]) [facility] [address] [place] [address] [id number] [place], YAO Self - patient is the insured
== END 2025-07-19 10:04 | disposition home or self-care (01) ==
LOC: HO.HMGAL 10:02
PROVIDERS: PCP Nurse Practitioner Family; Visit Provider Registered Nurse Emergency
DX: J30.89 Other allergic rhinitis (principal)
CPT/HCPCS: 95117; 95165

== ENCOUNTER 2025-08-09 12:35 | Outpatient (AMB) | payer BC, SELFPAY ==
--- OUTSIDE RECORDS SUMMARY | 2024-05-18 07:45 | XMS_ITS ---
Author Organization [facility] enter Primary Care Address [address] [place] [address] Care Team Providers Care Political Cartoonist Name Role Phone Migration, Provider Unavailable Unavailable [...] 0.1 x10E3/uL HEMATOCRIT 43.8 % HEMATOLOGY COMMENTS: GROUND SURVEILLANCE SYSTEMS OPERATOR HEMOGLOBIN 14.7 g/dL IMMATURE CELLS GROUND SURVEILLANCE SYSTEMS OPERATOR IMMATURE GRANS (ABS) 0.0 x10E3/uL IMMATURE GRANULOCYTES 0 % LYMPHS 15 % LYMPHS (ABSOLUTE) 1.1 x10E3/uL MCH 27.3 pg MCHC 33.6 g/dL MCV 81 fL MONOCYTES 11 % MONOCYTES(ABSOLUTE) 0.8 x10E3/uL NEUTROPHILS 71 % NEUTROPHILS (ABSOLUTE) 5.2 x10E3/uL NRBC GROUND SURVEILLANCE SYSTEMS OPERATOR PLATELETS 348 x10E3/uL RBC 5.38 x10E6/uL RDW [...] 05/18/2024 Encounters Encounter Location Date Provider Diagnosis [facility] [address] [place] [address] 05/18/2024 Provider Migration Cellulitis of right upper [...] * FLORIN SILVA: [birth year] (70 yo M)Acc No.[id number]:05/18/2024 Progress Notes Patient: YAO KNOTT Provider: Jessica Dewitt :1955 A ge:69 Y S ex:Male Date:05/18/2024 Address: [address] [facility], [id number] Objective: * Vitals: B P: 167/79 mm [...] EMATOCRIT 43.8 % * H EMATOLOGY COMMENTS: GROUND SURVEILLANCE SYSTEMS OPERATOR * H EMOGLOBIN 14.7 g/dL * I MMATURE CELLS GROUND SURVEILLANCE SYSTEMS OPERATOR * I MMATURE GRANS (ABS) 0.0 x10E3/uL * I MMATURE GRANULOCYTES 0 % * L YMPHS 15 % * L YMPHS (ABSOLUTE) 1.1 x10E3/uL * M CH 27.3 pg * M CHC 33.6 g/dL * M CV 81 fL * M ONOCYTES 11 % * M ONOCYTES(ABSOLUTE) 0.8 x10E3/uL * N EUTROPHILS 71 % * N EUTROPHILS (ABSOLUTE) 5.2 x10E3/uL * N RBC GROUND SURVEILLANCE SYSTEMS OPERATOR * P LATELETS 348 x10E3/uL * R BC 5.38 x10E6/uL * R DW 12.9 % * W BC 7.4 x10E3/uL * Electronic signature of Prov ider Migration on 08/09/2025 at 03:13 PM EST Sign off status: Pending * Provider: Jessica saba Migration Date: 0 05/18/2024 Generated for Melina che/Lizandro/Ayushsmitting on: 1 10/09/2024 03:13 PM EST
--- OUTSIDE RECORDS SUMMARY | 2024-05-25 04:00 | XMS_ITS ---
Author Organization [facility] enter Primary Care Address [address] [place] [address] Care Team Providers Care Sourcing Intern Name Role Phone Migration, Provider Unavailable Unavailable REASON FOR VISIT TelEnc Encounters Encounter Location Date Provider Diagnosis [facility] [address] [place] [address], [place] [address] 05/25/2024 Provider Migration Plan Of Treatment No Information Progress Notes * SILVAYAODOB: [birth year] (70 yo M)Acc No.[id number]:05/25/2024 Patient: YAO KNOTT :1955 A ge:69 Y S ex:Male Address:[address] [place], [address] Subjective: * Chief Complaints: * T elEnc * * Date:
--- OUTSIDE RECORDS SUMMARY | 2024-08-13 04:00 | XMS_ITS ---
Author Organization [facility] enter Primary Care Address [address] [facility] [place] [address] Care Team Providers Care Java Developer Architect Name Role Phone Migration, Provider Unavailable Unavailable REASON FOR VISIT TelEnc Encounters Encounter Location Date Provider Diagnosis [facility] [address] [facility] [place] [address] 08/13/2024 Provider Migration Plan Of Treatment No Information Progress Notes * SILVAYAODOB: [birth year] (70 yo M)Acc No.[id number]:08/13/2024 Patient: YAO KNOTT :1955 A ge:69 Y S ex:Male Address:[address] [place], [address] Subjective: * Chief Complaints: * T elEnc * * Date:
--- OUTSIDE RECORDS SUMMARY | 2024-09-24 04:00 | XMS_ITS ---
Author Organization [facility] enter Primary Care Address [address] [facility] [place] [address] Care Team Providers Care Corporate Sales Manager Name Role Phone Migration, Provider Unavailable Unavailable REASON FOR VISIT TelEnc Encounters Encounter Location Date Provider Diagnosis [facility] Urgent Care [address] [place] [address], [place] [address] 09/24/2024 Provider Migration Plan Of Treatment No Information Progress Notes * YAO SILVADOB: [birth year] (70 yo M)Acc No.[id number]:09/24/2024 Patient: YAO KNOTT :1955 A ge:69 Y S ex:Male Address:[place], [address] Subjective: * Chief Complaints: * T elEnc * * Date:
--- OUTSIDE RECORDS SUMMARY | 2024-10-15 04:00 | XMS_ITS ---
Author Organization [facility] enter Primary Care Address [address] [facility] [place] [address] Care Team Providers Care Gift Manager Name Role Phone Migration, Provider Unavailable Unavailable REASON FOR VISIT EMR-Alberto Encounters Encounter Location Date Provider Diagnosis [facility] Primary Care [address] [facility] [place] [address] 10/15/2024 Provider Migration Plan Of Treatment No Information Progress Notes * RICARDOYAODOB: [birth year] (70 yo M)Acc No.[id number]:10/15/2024 Patient: YAO KNOTT :1955 A ge:69 Y S ex:Male Address:[address] [place], [address] Subjective: * Chief Complaints: * E MR-Alberto * * Date:
--- OUTSIDE RECORDS SUMMARY | 2024-10-16 04:00 | XMS_ITS ---
Author Organization [facility] enter Primary Care Address [address] [place] [address] Care Team Providers Care Field Property Loss Specialist Name Role Phone Migration, Provider Unavailable Unavailable REASON FOR VISIT EMR-Alberto Medications Medication SIG (Take, Route, Frequency, Duration) Notes Start Date End Date Status Qvar RediHaler 80 MCG/ACT Aerosol Breath Activated Inhalation 05/18/2024 Act geno Arnuity Ellipta 200 MCG/ACT Aerosol Powder Breath Activated Inhalation 05/18/2024 Active AZELASTINE 137 MCG (0.1 %) NASAL SPRAY *Reorder from [employer] for eRx and Interaction Alerts* 05/18/2024 Active ALBUTEROL 90 MCG-BUDESONIDE 80 MCG/ACTUATION HFA AEROSOL INHALER *Reorder from [employer] for eRx and Interaction Alerts* 05/18/2024 Active LOSARTAN *Reorder from [employer] for eRx and Interaction Alerts* 05/18/2024 Active [...] Active Encounters Encounter Location Date Provider Diagnosis [facility] Primary Care [address] [place] [address] 10/16/2024 Provider Migration Plan Of Treatment No Information Progress Notes * YAO SILVADOB: [birth year] (70 yo M)Acc No.[id number]:10/16/2024 Patient: YAO KNOTT :1955 A ge:69 Y S ex:Male Address: [address] [place], [address] Subjective: * Chief Complaints: * E MR-Alberto [...] INHALER , Notes to Pharmacist: *[facility]*AZELASTINE 137 MCG (0.1 %) NASAL SPRAY , Notes to Pharmacist: *[facility]*LOSARTAN , Notes to Pharmacist: *[facility] Interaction [facility]*Taking amLODIPine-Atorvastatin 10-10 [...] INHALER , Notes to Pharmacist: *[facility]*Taking AZELASTINE 137 MCG (0.1 %) NASAL SPRAY , Notes to Pharmacist: *[facility] Interaction [facility]*Taking LOSARTAN , Notes to Pharmacist: *[facility] Interaction [facility]s* * * Date:
--- NOTE | 2025-08-09 12:58 | A.OFFVIS_ITS ---
Vital Signs 08/09/25 13:03 Height 5 ft 9.9 in Weight 210 lb 15.718 oz BMI 30.4 BP 142/78 H Blood Pressure Location Rt brachial Position Sitting Pulse 73 Pulse Source Pulse Oximeter Pulse Oximetry (%) 98 Oxygen Delivery Method Room Air Intake Visit Reasons: Knee pain Intake Note: Patient presents for knee pain follow up. Allergies ENVIROMENTAL Allergy (Intermediate, Uncoded 04/05/25 12:36) HAYFEVER HPI Comments Details: Patient is a 70-year-old male with hypertension and asthma who presents for follow-up of CPPD and OA Interval History: Last seen 04/05/25 with me - Not on any rheum medications - gel injections did not help - Still has knee pain especially with going up and down stairs - Given bilateral steroid knee injections Today - Not on any rheum meds - Doing well overall - Still has some discomfort walking up stairs but denies pain Rheumatologic History: Initially presented 06/2024 with sudden onset right wrist pain and swelling. Associated with inability to move the wrists. He was given a Medrol Dosepak with improvement in his pain over the course of a week. This was the 2nd occurrence it had happened a year prior to his 2023 presentation. No other autoimmune or connective tissue related review of systems. Presentation was consistent with CPPD and x-rays of the knees and wrists showed chondrocalcinosis as well No colchicine was offered at that time because this was not occurring that frequently. Also following up for bilateral osteoarthritis of his knees. Current Rheumatology Medication(s): [facility] Medical History (Updated 08/24/24 @ 14:27 by Asia Almaguer MD) Bilateral primary osteoarthritis of knee Positive MAURY (antinuclear antibody) Calcium pyrophosphate deposition disease (CPPD) Induratio penis plastica Hyperlipidemia Hemorrhoids Degeneration of lumbar or lumbosacral intervertebral disc Cough variant asthma Arthropathy of lumbar facet joint Allergic rhinitis Surgical History Hx of wisdom tooth extraction History of surgery Family History Mother Dementia Progressive supranuclear palsy Father High blood pressure High cholesterol Aneurysm Social History Alcohol intake: current Alcohol intake frequency: 3 or more drinks per day Patient Tobacco Use Status: Former Tobacco user Review of Systems Narrative Review of Systems Constitutional: Denies fever, chills, weight loss ENT: Denies vision changes, eye pain or eye redness, dental caries, dry mouth GI: Denies nausea, vomiting, diarrhea, abdominal pain, change in BM Pulm: Denies SOB, LOPEZ, hemoptysis, wheezing Cards: Denies chest pain, palpitations Skin: Denies Raynaud's, rash, nail changes, photosensitivity, 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 Well appearing and in no apparent painful distress CARDIAC SYSTEM Regular rate and rhythm. S1 and S2 heard no murmurs. Radial pulses intact bilaterally MSK Hands * Right Hand: Able to make a fist. No swelling or tenderness to palpation of the MCPs, PIPs or DIPs. * Left Hand: Able to make a fist. No swelling or tenderness to palpation of the MCPs, PIPs or DIPs. * Herbedens nodes noted bilaterally Wrists * Right Wrist: Slightly decreased ROM. No swelling or TTP * Left Wrist: Full ROM to flexion and extension. No swelling or TTP Elbows * Right Elbow: Full ROM. No swelling or TTP. No TTP of the medial epicondyle. No TTP of the lateral epicondyle * Left Elbow: Full ROM. No swelling or TTP. No TTP of the medial epicondyle. No TTP of the lateral epicondyle Shoulders * Right shoulder: Full ROM. No swelling noted. No TTP of the AC joint. No TTP of the subacromial bursa. No TTP of the posterior shoulder * Left shoulder: Full ROM. No swelling noted. No TTP of the AC joint. No TTP of the subacromial bursa. No TTP of the posterior shoulder Knees * Right knee: No swelling noted. No TTP of the knee joint line. No TTP of pes anserine bursa * Left knee: No swelling noted. No TTP of the knee joint line. No TTP of pes anserine bursa. * Crepitations felt bilaterally Ankles * Right ankle: Good ankle dorsiflexion and plantar flexion. No swelling. No TTP of the ankle joint * Left ankle: Good ankle dorsiflexion and plantar flexion. No swelling. No TTP of the ankle joint Feet * Right foot: Negative squeeze test * Left foot: Negative squeeze test Tender points? * No tenderness to palpation of the bilateral trapezius, supraspinatus, anterior costochondral junctions, bilateral suboccipital muscle insertions SKIN No rashes Vital Signs: Last Vital Signs Pulse 73 08/09/25 13:03 BP 142/78 H 08/09/25 13:03 Pulse Ox 98 08/09/25 13:03 Oxygen Delivery Method Room Air 08/09/25 13:03 BMI result Body Mass Index 30.4 Results Reviewed Results Reviewed: Laboratory Tests 08/03/24 16:01 WBC 5.3 RBC 5.36 Hgb 14.5 Hct 43.2 Plt Count 297 ESR 8 Sodium 135 Potassium 4.4 Chloride 97 Carbon Dioxide 28 BUN 9 Creatinine 0.76 Uric Acid 3.8 AST 23 ALT 22 C-Reactive Protein 0.49 Rheumatoid Factor < 13.0 Cycl Citrul Peptide IgG <16 MAURY Screen POSITIVE A MAURY Titer 1:80 H Sm (Hazel) Antibody <1.0 NEG SM/TAX PROCESSOR IgG Antibody <1.0 NEG Double Strand DNA Ab 1 Complement C3 132 Complement C4 21 XR Bilateral Knee 07/2024 (my read) Left knee with Kellgren grade 2-3. It evidence of chondrocalcinosis Right knee with Kellgren grade 2. XR bilateral hands and wrists 07/2024 (my read) No evidence of inflammatory arthritis such as periarticular osteopenia or erosions. Normal carpal space no evidence of carpal crowding. Faint chondrocalcinosis of the TFCC of the left hand. Knee Aspirate 10/18/24 Laboratory Tests 10/18/24 11:18 Synovial WBC 0.300 Synovial RBC < 0.002 Synovial Neutrophils 10 Synovial Lymphocytes 86 Synovial Other Cells 4 Procedure/Result Gram Stain - Final Anaerobic Culture - Final ???NO GROWTH AFTER 5 DAYS Gross Specimen Examination - Final Fluid Crystals - No crystals seen Joint Fluid Culture - Final ???No growth after 2 days Assessment & Plan Assessment & Plan (1) Calcium pyrophosphate deposition disease (CPPD): Code(s): M11.20 - Other chondrocalcinosis, unspecified site Category: Medical Plan: #Non crystal proven CPPD Patient is a 70 y.o. male with a history of monoarticular arthritis involving the wrist that responded to prednisone. Differentials include rheumatoid arthritis, spondyloarthritis, reactive arthritis, sarcoidosis Knee and wrist x-rays confirm evidence of chondrocalcinosis. RF and CCP negative. ESR and CRP are normal now. His wrist pain was likely due to CPPD No further flares Plan - No colchicine or further therapies at this time. - If recurrent we will consider colchicine therapy - RTC prn (2) Bilateral primary osteoarthritis of knee: Code(s): M17.0 - Bilateral primary osteoarthritis of knee Category: Medical Plan: #Bilateral Knee OA Bilateral knee OA left worse than right. Non inflammatory knee aspirate No injections today Plan - RTC prn (3) Positive MAURY (antinuclear antibody): Code(s): R76.8 - Other specified abnormal immunological findings in serum Category: Medical Plan: #Positive MAURY The presence of antinuclear antibodies (MAURY) is mainly associated with connective tissue diseases (CTD). ?However, their presence is found in healthy people especially in women and patients >65. ?In healthy individuals, the frequency of MAURY has been shown to be 31.7% of individuals at 1:40 serum dilution, 13.3% at 1:80, 5.0% at 1:160, and 3.3% at 1:320 (2). Some drugs and xenobiotics are also important for the development of MAURY (hydralazine, hydrochlorothiazide, minocycline, terbinafine, ciprofloxacin, furosemide, omeprazole). Moreover, the deficiency of vitamin D in the body of patients correlates with occurrence of these antibodies (1). At this time there is low suspicion for a connective tissue disease. While it is uncommon to have a positive MAURY in a male over the age of 65 he is on hydrochlorothiazide which has been known to induce MAURY development. He has no signs or symptoms concerning for connective tissue disease at this time ? 1. Sary?lizzette Rodrigues, Niyah Hi, Radha Perez. Antinuclear antibodies in healthy people and non-rheumatic diseases - diagnostic and clinical implications. Reumatologia. 2018;56(4):243-248. doi: 10.5114/reum.2018.63904. Epub 2017May 28. PMID: 39623266; PMCID: [id number]. 2. Antonino EM, Pradeep TE, Katiuska JS, Daphnie B, Layton R, Shannan MJ, Robert T, Samy JA, Allyson JR, Misty RG, Wei RN, Sonido JS, Milton NF, Braden RJ, Kendall Y, Kehinde A, Harvinder MR, Raphael BEVERLY. Range of antinuclear antibodies in healthy individuals. Arthritis Rheum. 1997 May;40(9):1601-11. doi: 10.1002/art.3261699628. PMID: 5212645. Plan I spent 30 minutes reviewing the record and labs, seeing the patient, discussing the treatment plan and documenting in the medical record ? Coding Level of Care Code Est Pt Level 4 (14587) Complex EM visit Add On G2211 Diagnoses Calcium pyrophosphate deposition disease (CPPD) M11.20 Bilateral primary osteoarthritis of knee M17.0 Positive MAURY (antinuclear antibody) R76.8
[2025-08-09 13:03] VITALS: BP 142/78; PULSE 73; O2SAT 98; BMI 30.4
--- OUTSIDE RECORDS SUMMARY | 2025-08-09 15:13 | XMS_ITS | Patient Health Record ---
Author Organization [facility] enter Primary Care Address [address] [place] [address] Care Team Providers Care Molding Press Operator Name Role Phone Migration, Provider Unavailable [...] MCG (0.1 %) NASAL SPRAY *Reorder from Qio for eRx and Interaction Alerts* 05/18/2024 Active Cephalexin 500 MG Tablet Oral 05/18/2024 Active ALBUTEROL 90 MCG-BUDESONIDE 80 MCG/ACTUATION HFA AEROSOL INHALER *Reorder from Qio for eRx and Interaction Alerts* 05/18/2024 Active Doxycycline Hyclate 100 MG Capsule Oral 05/18/2024 Active LOSARTAN *Reorder from deviantARTan for eRx and Interaction Alerts* 05/18/2024 Active [...] Active Encounters Encounter Location Date Provider Diagnosis [facility] [address] [place] [address] 08/13/2024 Provider Migration [facility] [address] [place] [address] 09/24/2024 Provider Migration [facility] [address] [place] [address] 10/15/2024 Provider Migration [facility] [address] [place] [address] 10/16/2024 Provider Migration Plan Of Treatment No Information Insurance Providers Payer Name Payer Address Payer Phone Subscriber Number Group Number Insured Name Patient Relationship to Insured Coverage Start Date Coverage End Date [facility] Blue [employer] (VBA) [facility] [address] [place] [address] [id number] WASHINGT ON, YAO Self - patient is the insured
== END 2025-08-09 13:22 | disposition home or self-care (01) ==
LOC: HO.RHES 12:36
PROVIDERS: PCP Nurse Practitioner Family; Visit Provider Student in an Organized Health Care Education/Training Program
DX: M11.20 Other chondrocalcinosis, unspecified site (principal); M17.0 Bilateral primary osteoarthritis of knee; R76.89 Other specified abnormal immunological findings in serum
CPT/HCPCS: 99214

== ENCOUNTER 2025-08-21 10:07 | Outpatient (AMB) | payer BC, SELFPAY | END 2025-08-21 10:08 | disposition home or self-care (01) | LOC: HO.HMGAL 10:07 | PROVIDERS: PCP Nurse Practitioner Family; Visit Provider Registered Nurse Emergency | DX: J30.89 Other allergic rhinitis (principal) | CPT/HCPCS: 95117; 95165 ==

== ENCOUNTER 2025-09-18 09:17 | Outpatient (AMB) | payer BC, SELFPAY ==
--- OUTSIDE RECORDS SUMMARY | 2024-05-18 07:45 | XMS_ITS ---
Author Organization [facility] enter Primary Care Address [address] [place] [address] Care Team Providers Care Oil Well Driller Name Role Phone Migration, Provider Unavailable Unavailable Results Component Value Reference Range Notes ANAPLASMA PHAGOCYTOPHILUM + EHRLICHIA CHAFFEENSIS IGG PANEL, TITER, SERUM Reviewed date:05/18/2024 12:00:00 AM Interpretation: Performing Lab: Notes/Report: A. PHAGOCYTOPHILUM IGG Negative BABESIA MICROTI IGG <1:10 E. CHAFFEENSIS IGG Negative LYME TOTAL ANTIBODY GUERO Negative RESULT COMMENTS: Comment CBC W/ AUTO DIFF Reviewed date:05/18/2024 12:00:00 AM Interpretation: Performing Lab: Notes/Report: BASO (ABSOLUTE) 0.0 x10E3/uL BASOS 1 % EOS 2 % EOS (ABSOLUTE) 0.1 x10E3/uL HEMATOCRIT 43.8 % HEMATOLOGY COMMENTS: QUALITY SYSTEMS SPECIALIST HEMOGLOBIN 14.7 g/dL IMMATURE CELLS QUALITY SYSTEMS SPECIALIST IMMATURE GRANS (ABS) 0.0 x10E3/uL IMMATURE GRANULOCYTES 0 % LYMPHS 15 % LYMPHS (ABSOLUTE) 1.1 x10E3/uL MCH 27.3 pg MCHC 33.6 g/dL MCV 81 fL MONOCYTES 11 % MONOCYTES(ABSOLUTE) 0.8 x10E3/uL NEUTROPHILS 71 % NEUTROPHILS (ABSOLUTE) 5.2 x10E3/uL NRBC QUALITY SYSTEMS SPECIALIST PLATELETS 348 x10E3/uL RBC 5.38 x10E6/uL RDW 12.9 % WBC 7.4 x10E3/uL BABESIA MICROTI IGG AB, SERU M Reviewed date:05/18/2024 12:00:00 AM Interpretation: Performing Lab: Notes/Report: CBC W/ AUTO DIFF Reviewed date:05/18/2024 12:00:00 AM Interpretation: Performing Lab: Notes/Report: LYME ANTIBODY SCREEN, EIA/EL SHALOM, SERUM Reviewed date:05/18/2024 12:00:00 AM Interpretation: Performing Lab: Notes/Report: UNLISTED LAB Reviewed date:05/18/2024 12:00:00 AM Interpretation: Performing Lab: Notes/Report: US, DUPLEX, VENOUS, UPPER EX TREMITY, UNILATERAL Reviewed date:05/18/2024 12:00:00 AM Interpretation: Performing Lab: Notes/Report: Vital Signs Temperature 97.7 degrees Fahrenheit 05/18/20 24 Blood pressure systolic 167 mm Hg 05/18/20 24 Blood pressure diastolic 79 mm Hg 024 Heart Rate 71 /min 05/18/2024 Weight 216.80 lbs 05/18/2024 Oximetry 94 % 05/18/2024 Weight-kg 98.34 kg 05/18/2024 Encounters Encounter Location Date Provider Diagnosis [facility] [address] [place] [address] 05/18/2024 Provider Migration Cellulitis of right upper limb L03.113 ; Localized swelling, mass and lump, unspecified upper limb R22.30 ; Localized swelling, mass and lump, right upper limb R22.31 ; Bitten or stung by nonvenomous insect and other nonvenomous arthropods, initial encounter W57.XXXA and Exposure to other animate mechanical forces, initial encounter W64.XXXA Assessments Encounter Date Diagnosis (ICD Code) Assessment Notes Treatment Notes Treatment Clinical Notes Section Notes 05/18/2024 Cellulitis of right upper limb (ICD-10 - L03.113) 05/18/2024 Localized swelling, mass and lump, unspecified upper limb (ICD-10 - R22.30) 05/18/2024 Localized swelling, mass and lump, right upper limb (ICD-10 - R22.31) 05/18/2024 Bitten or stung by nonvenomous insect and other nonvenomous arthropods, initial encounter (ICD-10 - W57.XXXA) 05/18/2024 Exposure to other animate mechanical forces, initial encounter (ICD-10 - W64.XXXA) Plan Of Treatment No Information Progress Notes * FLORIN SILVA: [birth year] (70 yo M)Acc No.[id number]:05/18/2024 Progress Notes Patient: YAO KNOTT Provider: Jessica Dewitt :1955 A ge:69 Y S ex:Male Date:05/18/2024 Address: [address] [facility], [id number] Objective: * Vitals: B P: 167/79 mm Hg, HR: 71 /min, Temp: 97.7 F, Oxygen sat %: 94 %, Wt: 216.80 lbs, Wt-k.34 kg. Assessment: * Assessment: 1. C ellulitis of right upper limb - L03.113 2 . L ocalized swelling, mass and lump, unspecified upper limb - R22.30 3 . L ocalized swelling, mass and lump, right upper limb - R22.31 4 . B itten or stung by nonvenomous insect and other nonvenomous arthropods, initial encounter - W57.XXXA 5 . E xposure to other animate mechanical forces, initial encounter - W64.XXXA Plan: * Imaging: * I maging: BABESIA MICROTI IGG AB, SERUM ?Imaging: CBC W/ AUTO DIFF* * ?Imaging: LYME ANTIBODY SCREEN, EIA/PAUL, SERUM* * ?Imaging: UNLISTED LAB* * ?Imaging: US, DUPLEX, VENOUS, UPPER EXTREMITY, UNILATERAL* * * Labs: * L ab: ANAPLASMA PHAGOCYTOPHILUM + EHRLICHIA CHAFFEENSIS IGG PANEL, TITER, SERUM Value Reference Range A . PHAGOCYTOPHILUM IGG Negative * B ABESIA MICROTI IGG <1:10 * E . CHAFFEENSIS IGG Negative * L YME TOTAL ANTIBODY GUERO Negative * R ESULT COMMENTS: Comment ?Lab: CBC W/ AUTO DIFF* Value Reference Range B ASO (ABSOLUTE) 0.0 x10E3/uL * B ASOS 1 % * E OS 2 % * E OS (ABSOLUTE) 0.1 x10E3/uL * H EMATOCRIT 43.8 % * H EMATOLOGY COMMENTS: QUALITY SYSTEMS SPECIALIST * H EMOGLOBIN 14.7 g/dL * I MMATURE CELLS QUALITY SYSTEMS SPECIALIST * I MMATURE GRANS (ABS) 0.0 x10E3/uL * I MMATURE GRANULOCYTES 0 % * L YMPHS 15 % * L YMPHS (ABSOLUTE) 1.1 x10E3/uL * M CH 27.3 pg * M CHC 33.6 g/dL * M CV 81 fL * M ONOCYTES 11 % * M ONOCYTES(ABSOLUTE) 0.8 x10E3/uL * N EUTROPHILS 71 % * N EUTROPHILS (ABSOLUTE) 5.2 x10E3/uL * N RBC QUALITY SYSTEMS SPECIALIST * P LATELETS 348 x10E3/uL * R BC 5.38 x10E6/uL * R DW 12.9 % * W BC 7.4 x10E3/uL * Electronic signature of Prov ider Migration on 09/18/2025 at 10:19 AM EST Sign off status: Pending * Provider: Jessica saba Migration Date: 0 05/18/2024 Generated for Melina che/Lizandro/Ayushsmitting on: 1 11/19/2024 10:19 AM EST
--- OUTSIDE RECORDS SUMMARY | 2024-05-25 04:00 | XMS_ITS ---
Author Organization [facility] enter Primary Care Address [address] [place] [address] Care Team Providers Care Preconstruction Manager Name Role Phone Migration, Provider Unavailable Unavailable REASON FOR VISIT TelEnc Encounters Encounter Location Date Provider Diagnosis [facility] [address] [place] [address], [place] [address] 05/25/2024 Provider Migration Plan Of Treatment No Information Progress Notes * SILVAYAODOB: [birth year] (70 yo M)Acc No.[id number]:05/25/2024 Patient: YAO KNOTT :1955 A ge:69 Y S ex:Male Address:[address] [place], [address] Subjective: * Chief Complaints: * T elEnc * * Date:
--- OUTSIDE RECORDS SUMMARY | 2024-08-13 04:00 | XMS_ITS ---
Author Organization [facility] enter Primary Care Address [address] [place] [address] Care Team Providers Care Station Installer And Repairer Name Role Phone Migration, Provider Unavailable Unavailable REASON FOR VISIT TelEnc Encounters Encounter Location Date Provider Diagnosis [facility] Ur[facility] [address] [place] [address] 08/13/2024 Provider Migration Plan Of Treatment No Information Progress Notes * SILVAYAODOB: [birth year] (70 yo M)Acc No.[id number]:08/13/2024 Patient: YAO KNOTT :1955 A ge:69 Y S ex:Male Address:[address] [place], [address] Subjective: * Chief Complaints: * T elEnc * * Date:
--- OUTSIDE RECORDS SUMMARY | 2024-09-24 04:00 | XMS_ITS ---
Author Organization [facility] enter Primary Care Address [address] [place] [address] Care Team Providers Care Videotape Sales Representative Name Role Phone Migration, Provider Unavailable Unavailable REASON FOR VISIT TelEnc Encounters Encounter Location Date Provider Diagnosis [facility] Ur[facility] [address] [place] [address], [place] [address] 09/24/2024 Provider Migration Plan Of Treatment No Information Progress Notes * YAO SILVADOB: [birth year] (70 yo M)Acc No.[id number]:09/24/2024 Patient: YAO KNOTT :1955 A ge:69 Y S ex:Male Address:[place], [address] Subjective: * Chief Complaints: * T elEnc * * Date:
--- OUTSIDE RECORDS SUMMARY | 2024-10-15 04:00 | XMS_ITS ---
Author Organization [facility] enter Primary Care Address [address] [facility] [place] [address] Care Team Providers Care Steel Chipper Name Role Phone Migration, Provider Unavailable Unavailable REASON FOR VISIT EMR-Alberto Encounters Encounter Location Date Provider Diagnosis [facility] [address] [facility] [place] [address] 10/15/2024 Provider Migration Plan Of Treatment No Information Progress Notes * RICARDOYAODOB: [birth year] (70 yo M)Acc No.[id number]:10/15/2024 Patient: YAO KNOTT :1955 A ge:69 Y S ex:Male Address:[address] [place], [address] Subjective: * Chief Complaints: * E MR-Alberto * * Date:
--- OUTSIDE RECORDS SUMMARY | 2024-10-16 04:00 | XMS_ITS ---
Author Organization [facility] enter Primary Care Address [address] [place] [address] Care Team Providers Care News Editor Name Role Phone Migration, Provider Unavailable Unavailable REASON FOR VISIT EMR-Alberto Medications Medication SIG (Take, Route, Frequency, Duration) Notes Start Date End Date Status Qvar RediHaler 80 MCG/ACT Aerosol Breath Activated Inhalation 05/18/2024 Act geno Arnuity Ellipta 200 MCG/ACT Aerosol Powder Breath Activated Inhalation 05/18/2024 Active AZELASTINE 137 MCG (0.1 %) NASAL SPRAY *Reorder from [facility] for eRx and Interaction Alerts* 05/18/2024 Active ALBUTEROL 90 MCG-BUDESONIDE 80 MCG/ACTUATION HFA AEROSOL INHALER *Reorder from [facility] for eRx and Interaction Alerts* 05/18/2024 Active LOSARTAN *Reorder from [facility] for eRx and Interaction Alerts* 05/18/2024 Active Fluticasone-Salmeterol 100-50 MCG/ACT Aerosol Powder Breath Activated Inhalation 05/18/2024 Acti ve Meloxicam 7.5 MG Tablet Oral 05/18/2024 Active Losartan Potassium-HCTZ 50-12.5 MG Tablet Oral 05/18/2024 Active Albuterol Sulfate HFA 108 (90 Base) MCG/ACT Aerosol Solution Inhalation 05/18/2024 Active methylPREDNISolone 4 MG Tablet Therapy Pack Oral 05/18/2024 Active Azelastine HCl 137 MCG/SPRAY Solution Nasal 05/18/2024 Active Clobetasol Propionate 0.05 % Ointment External 05/18/2024 Active Cephalexin 500 MG Tablet Oral 05/18/2024 Active Doxycycline Hyclate 100 MG Capsule Oral 05/18/2024 Active Fluticasone Propionate HFA 110 MCG/ACT Aerosol Inhalation 05/18/2024 Acti ve amLODIPine-Atorvastatin 10-10 MG Tablet Oral 05/18/2024 Active Encounters Encounter Location Date Provider Diagnosis [facility] Primary Care [address] [facility] [place] [place] [address] 10/16/2024 Provider Migration Plan Of Treatment No Information Progress Notes * YAO SILVADOB: [birth year] (70 yo M)Acc No.[id number]:10/16/2024 Patient: YAO KNOTT :1955 A ge:69 Y S ex:Male Address: [address] [place], [address] Subjective: * Chief Complaints: * E MR-Alberto * Medications: T akingamLODIPine-Atorvastatin 10-10 MG Tablet Oral Azelastine HCl 137 MCG/SPRAY Solution Nasal Cephalexin 500 MG Tablet Oral Clobetasol Propionate 0.05 % Ointment External Doxycycline Hyclate 100 MG Capsule Oral Fluticasone Propionate HFA 110 MCG/ACT Aerosol Inhalation Fluticasone-Salmeterol 100-50 MCG/ACT Aerosol Powder Breath Activated Inhalation Losartan Potassium-HCTZ 50-12.5 MG Tablet Oral Meloxicam 7.5 MG Tablet Oral methylPREDNISolone 4 MG Tablet Therapy Pack Oral Albuterol Sulfate HFA 108 (90 Base) MCG/ACT Aerosol Solution Inhalation Arnuity Ellipta 200 MCG/ACT Aerosol Powder Breath Activated Inhalation Qvar RediHaler 80 MCG/ACT Aerosol Breath Activated Inhalation ALBUTEROL 90 MCG-BUDESONIDE 80 MCG/ACTUATION HFA AEROSOL INHALER , Notes to Pharmacist: *[facility] and Interaction Alerts*AZELASTINE 137 MCG (0.1 %) NASAL SPRAY , Notes to Pharmacist: *[facility] and Interaction Alerts*LOSARTAN , Notes to Pharmacist: *[facility] for [facility]Rx and Interaction Alerts*Taking amLODIPine-Atorvastatin 10-10 MG Tablet Oral Taking Azelastine HCl 137 MCG/SPRAY Solution Nasal Taking Cephalexin 500 MG Tablet Oral Taking Clobetasol Propionate 0.05 % Ointment External Taking Doxycycline Hyclate 100 MG Capsule Oral Taking Fluticasone Propionate HFA 110 MCG/ACT Aerosol Inhalation Taking Fluticasone-Salmeterol 100-50 MCG/ACT Aerosol Powder Breath Activated Inhalation Taking Losartan Potassium-HCTZ 50-12.5 MG Tablet Oral Taking Meloxicam 7.5 MG Tablet Oral Taking methylPREDNISolone 4 MG Tablet Therapy Pack Oral Taking Albuterol Sulfate HFA 108 (90 Base) MCG/ACT Aerosol Solution Inhalation Taking Arnuity Ellipta 200 MCG/ACT Aerosol Powder Breath Activated Inhalation Taking Qvar RediHaler 80 MCG/ACT Aerosol Breath Activated Inhalation Taking ALBUTEROL 90 MCG-BUDESONIDE 80 MCG/ACTUATION HFA AEROSOL INHALER , Notes to Pharmacist: *[facility]*Taking AZELASTINE 137 MCG (0.1 %) NASAL SPRAY , Notes to Pharmacist: *[facility] and Interaction Alerts*Taking LOSARTAN , Notes to Pharmacist: *[facility] and Interaction Alerts* * * Date:
--- OUTSIDE RECORDS SUMMARY | 2025-09-18 10:20 | XMS_ITS | Patient Health Record ---
Author Organization [facility] enter Primary Care Address [address] [place] [address] Care Team Providers Care Kiln Fireman Name Role Phone Migration, Provider Unavailable Unavailable [...] MCG (0.1 %) NASAL SPRAY *Reorder from TrustAlert for eRx and Interaction Alerts* 05/18/2024 Active Cephalexin 500 MG Tablet Oral 05/18/2024 Active ALBUTEROL 90 MCG-BUDESONIDE 80 MCG/ACTUATION HFA AEROSOL INHALER *Reorder from [employer]Alert for eRx and Interaction Alerts* 05/18/2024 Active Doxycycline Hyclate 100 MG Capsule Oral 05/18/2024 Active LOSARTAN *Reorder from SampleBoardan for eRx and Interaction Alerts* 05/18/2024 Active [...] Encounters Encounter Location Date Provider Diagnosis [facility] [address] [place] [address] 09/24/2024 Provider Migration [facility] [address] [place] [address] 10/15/2024 Provider Migration [facility] [address] [place] [address] 10/16/2024 Provider Migration Plan Of Treatment No Information Insurance Providers Payer Name Payer Address Payer Phone Subscriber Number Group Number Insured Name Patient Relationship to Insured Coverage Start Date Coverage End Date [place] [employer] (VBA) [facility] [address] [place] [address] [id number] WASHINGT ON, YAO Self - patient is the insured
== END 2025-09-18 09:21 | disposition home or self-care (01) ==
LOC: HO.HMGAL 09:17
PROVIDERS: PCP Nurse Practitioner Family; Visit Provider Registered Nurse Emergency
DX: J30.89 Other allergic rhinitis (principal)
CPT/HCPCS: 95117; 95165